=== PATIENT | female | born 1980 | race Caucasian/White ===

== ENCOUNTER 2018-05-14 22:25 | Inpatient (IN) | payer OTHER ==
[~2018-05-14] VITALS: Ht 160 cm; Wt 63.0 kg
[2018-05-14] MEDS ORDERED: morphine 4 MG/ML VIAL IV ONE (22:35)
[2018-05-14] MEDS ORDERED: morphine 2 MG INJ ONE (22:36)
[2018-05-14] MEDS: LACTATED RINGER'S 1,000 ML IV* SCH (23:01)
[2018-05-14] MEDS ORDERED: DIAZEPAM 5 MG/ML SYG IV ONE (23:12)
[2018-05-14] MEDS: morphine 4 MG/ML VIAL IV PRN (23:34)
[2018-05-14 23:48] VITALS: BP 122/66; PULSE 95; RESP 18
[2018-05-15] MEDS: LACTATED RINGER'S 1,000 ML IV* SCH ×3 (00:50→19:08)
[2018-05-15] MEDS: morphine 4 MG/ML VIAL IV PRN ×2 (01:38→04:44)
[2018-05-15] MEDS ORDERED: AL HYDROX/MG HYDROX/SIMETH 30 ML CUP PO PRN (03:00)
[2018-05-15] MEDS ORDERED: MAGNESIUM SULFATE 4 GM/100 ML 100 ML IV ONE (03:00)
[2018-05-15] MEDS ORDERED: ONDANSETRON 4 MG INJ IV PRN (03:00)
[2018-05-15] MEDS: MAGNESIUM SULFATE 20 GM/500 ML 500 ML IV SCH ×3 (03:48→23:58)
[2018-05-15] MEDS: BETAMET NA PHOS/AC(6 MG/ML) 2 ML INJ SYG IM SCH (05:23)
[2018-05-15] MEDS: HYDROmorphONE 0.5 MG/0.5 ML SYG IV PRN ×5 (08:00→21:20)
[2018-05-15] MEDS: PRENATAL VITAMIN PO SCH (12:03)
[2018-05-15] MEDS: FERROUS SULFATE (EC) 325 MG TAB PO SCH (12:03)
--- NOTE | 2018-05-15 12:34 | HP ---
Date/Time of Note Date/Time of Note DATE: 05/15/18 TIME: 10:55 OB - History Hx of Present Free Text/Dictation 38y.o [id number] triage with severe abdominal pain for few hours. pain level was 10/10 no position made pain alleviated, denies any nausea or vomiting or diarrhea or vaginal bleeding of febrile episodesor hematuria. normotensive , no tachycardia afebrile unable to evaluate patient due to severe pain except information from her OB that she is known to have fiboid which could be degenerated ,which could be the cause of pain. abdominal palpation used to detect uterine activities,because patient was hypersensitive on putting the toco belt no uterine activities was felt for longer than 20 min. Morphine sulfate 4mg given x2 didnt relieved pain ,additional valium 2mg made her relax and ease up the pain and then we are able to place toco which revealed uc's q2-3 min . CVL wasnt done before due to patient 's refusal but it was allowed showed 3.35 ,initial measurement 4.2 in 1st trimester patient was admitted for steroid tx for lung maturity and magnesium sulfate for tocolysis with neuroprotection. also consultation will be obtained. add; due to recurrent loss of she did received progesterone up to 12w of ,has been on BASA Chief Complaint: severe abdominal pain Estimated Due Date: Aug 07, 2018 : 6 Para: 1 Spontaneous : 4 Therapeutic : 0 Care: Good Care Ultrasounds: Normal mid trimester US Obstetrical Complications: None, Other (terine fibroid) Past Family/Social History * Past Medical, Surgical, Family and Obstetric Histories reviewed from chart. Blood Type: A+ Rubella: not immune RPR/VDRL: Negative GBS Status: Negative HBsAG: Negative OB Admission Exam Vital Signs Vital Signs Vital Signs Date Temp Pulse Resp B/P (MAP) Pulse Ox O2 O2 Flow FiO2 Time Delivery Rate 05/14/18 97.7 95 18 122/66 Room Air 23:48 (84) Physical Exam HEENT: WNL Heart: Rhythm Normal Lungs: Clear, Equal Abdomen: Abnormal (extremely sensitive) Extremities: Normal Reflexes: Normal Cervical Dilatation: other Effacement: Other (CVL 3.35) Station: Other Membranes: Intact Amniotic Fluid: Unevaluable Heart Rate: 150's (170) Accelerations: Accelerations Present Varibility: Minimum Contractions on Admission: None Last 72 hours Lab Results CBC & BMP 05/14/18 23:57 Liver Function Test 05/14/18 23:57 Alanine Aminotransferase (ALT/SGPT) 13 Albumin 3.2 L Alkaline Phosphatase 121 Aspartate Amino Transf (AST/SGOT) 17 Direct Bilirubin 0.00 Total Protein 6.3 OB Assessment/Plan Reason for admission: labor Other Assessment: A IUP 28w with severe abdominal pain mostlikely due to degenerating fibroid PTL Plan: Other ( pain management, tocolysis and BMZ) KRISTA ROMERO MD May 15, 2018 12:31
--- NOTE | 2018-05-15 12:40 | QN ---
Documentation Comment patient appear to be feeling better ,currently making face intermittently whenever uc's occur mg level just drawn. still having uc's even though its spaecd out increase fluid feed the patient wait for aliyah see pt KRISTA ROMERO MD May 15, 2018 12:40
[2018-05-15] MEDS: ASPIRIN 81 MG TAB PO SCH (13:25)
[2018-05-16] MEDS: HYDROmorphONE 0.5 MG/0.5 ML SYG IV PRN ×4 (01:12→19:03)
[2018-05-16] MEDS: LACTATED RINGER'S 1,000 ML IV* SCH ×2 (04:51→18:17)
[2018-05-16] MEDS ORDERED: HYDROmorphONE 1 MG/ML SYG IV PRN (06:00)
--- NOTE | 2018-05-16 06:39 | CONS ---
DATE OF ADMISSION: 05/15/2018 DATE OF CONSULTATION: 05/15/2018 RECOMMENDATIONS: This is perinatology note. HISTORY OF PRESENT ILLNESS: The patient is a 38-year-old G6, P1 currently at 28 weeks and 5 or 6 day s and presented with complaint of contractions. Her cervical length was 3.2 cm. She was placed on m agnesium sulfate and been given betamethasone. Currently, she feels much better and she states after placement of the Sher she actually can relax a nd could sleep. OBSTETRIC HISTORY: Significant for 2 spontaneous abortions followed with 1 , 2 stops and th en one. This is the second baby. VITAL SIGNS: Stable. PHYSICAL EXAMINATION: Deferred. heart tones reassuring. Currently, no contractions. IMPRESSION: Intrauterine at 28 weeks and 5 days with labor, mostly contrac tions, presented to hospital on magnesium sulfate, currently receiving betamethasone. She states that her status has improved. She has about 2.9 cm myoma. Per patient she received 48 hours of Indocin about last week since she w as experiencing pain in that region. However, she does state that at last visit with us, her pain wa s not constant but would go and come back which is more consistent with contractions. RECOMMENDATIONS: Continue with the magnesium sulfate until the last dose of betamethasone, then we c an, given the cervical length, it can be discontinued. Alternatively tomorrow morning we can repeat the cervical length. If it is stable, magnesium sulfate can be discontinued. However, if the cervix is less than 2.5 cm, then I do recommend to continue with the magnesium for 24 hours after the last dose of betamethasone. When magnesium is discontinued, monitor in-house for a few hours. If there i s no evidence of contractions, she can be discharged home. She does have a doctor at [place] and she has been in touch with him. She was advised against holding her urine for a long time and also she had some concerns about the my stefano. Myoma is 2.9 cm, but the 2.9 cm can cause some pain; however, that pain would be constant and w ould not come and go. Once magnesium sulfate is stopped and after a few hours if she has some pain, please do note that the pain can be secondary to the myoma. We would have to assess the origin. If she feels that the pain is contraction-related, then she can be discharged home on Procardia 20 mg every 6 hours if blood pr essure allows. However, if she is in pain, then obviously in-house management without discharge. In summary, check transvaginal cervical length and based on that, decide. If the cervical length is above 2.5 cm, continue IV magnesium sulfate and monitor for a few hours. If she is comfortable, she can be discharged home. Otherwise, start on Procardia 20 mg every 6 hours and monitor and if that wo rks, then she can be discharged home. Alternatively, if the transvaginal cervical length is less jose n 2.5 cm, then I do recommend continuing with the magnesium sulfate 24 hours after the second dose of betamethasone and then Procardia as stated above. Dictated By: PHILLIP VILLALBA MD ST/NTS Conf#: [id number] DID#: [id number] CC: TAMARA ROMERO MD;*EndCC*
[2018-05-16] MEDS: BETAMET NA PHOS/AC(6 MG/ML) 2 ML INJ SYG IM SCH (09:45)
[2018-05-16] MEDS ORDERED: DESFLURANE 15 MIN ONE (10:00)
[2018-05-16] MEDS: FERROUS SULFATE (EC) 325 MG TAB PO SCH (10:09)
[2018-05-16] MEDS: PRENATAL VITAMIN PO SCH (10:09)
[2018-05-16] MEDS: ASPIRIN 81 MG TAB PO SCH (10:09)
--- NOTE | 2018-05-16 10:15 | CONS ---
Consultation Date/Type/Reason Admit Date/Time May 15, 2018 at 03:00 Date of Consultation: May 16, 2018 Type of Consult Neonatology Reason for Consultation Patient is admitted for pain and labor. Date/Time of Note DATE: 05/16/18 TIME: 10:09 Hx of Present Illness Request for consult by Dr. Pressley and also by perinatology. Rigo Leon is admitted for pain and labor, at 28 weeks on 05/15. She was taken by ambulance to [facility]. She has delivery plan for [facility] where her doctor is. She is 38-year-old 6 para 1 TAB 4 had a previous child at 37 weeks who is now 3 years old and doing well. She denies other illnesses medication smoking drugs or alcohol. Her blood type is A+ RPR negative rest of labs are not available. She had an cervical ultrasound showing a length of 3.35 cm. Obstetrical ultraso und shows an estimated weight of 1196 g on 05/15. She does not want to know the sex of the baby, and I do not know it 8 She is admitted for pain also is some contractions, was started on magnesium sulfate and received first dose of betamethasone on 05/15 at 5:30 AM. She has no fever but possibly an MRI to rule out appendicitis is planned. I spoke extensively with Ms. Leon about the risk for neurodevelopmental problems in premature babies, which can be augmented by problems such as respiratory distress, as well as intracranial bleeding. Risk for eye problems retinopathy of prematurity, respiratory problems requiring support, apnea hyperbilirubinemia feeding difficulties requiring gavage feeding intravenous feeding and feeding intolerance such as necrotizing enterocolitis, intracranial hemorrhage, glucose and metabolic disturbances, the need for possibly needed procedures such as invasive lines. I encouraged her to stay which her doctors will try even if she would require surgery for an appendix. I answered all her questions to her satisfaction. I spent about 30 minutes with Ms. Leon, more than 50% of this spent on with counseling and coordination of care. Thank you very much for allowing me to assist in the care of this family. Obviously neonatology involvement if the baby is born prematurely. Past Medical History Medications Current Medications Lactated Ringer's 1,000 ml @ 500 mls/hr Q2H IV* Last administered on 05/16/18at 04:51; Admin Dose 500 MLS/HR; Start 05/14/18 at 23:00 Morphine Sulfate (morphine) 4 mg Q2H PRN IV SEVERE PAIN LEVEL 7-10 Last administered on 05/15/18at 04:44; Admin Dose 4 MG; Start 05/14/18 at 23:30 Prenat Multivit/ [place]/Iron/Folic Ac () 1 tab DAILY PO Last administered on 05/15/18at 12:03; Admin Dose 1 TAB; Start 05/15/18 at 09:00 Ferrous Sulfate (Ferrous Sulfate (Ec)) 325 mg DAILY PO Last administered on 05/15/18at 12:03; Admin Dose 325 MG; Start 05/15/18 at 09:00 Acetaminophen (Tylenol Tab) 650 mg Q4H PRN PO .PAIN OR TEMP; Start 05/15/18 at 03:00 Al Hydrox/Mg Hydrox/Simethicone (Mag-Al Plus) 30 ml Q6H PRN PO .GI UPSET; Start 05/15/18 at 03:00 Ondansetron HCl (Zofran Inj) 4 mg Q6H PRN IV NAUSEA/VOMITING; Start 05/15/18 at 03:00 Aspirin (Aspirin) 81 mg DAILY PO Last administered on 05/15/18at 13:25; Admin Dose 81 MG; Start 05/15/18 at 12:30 Hydromorphone HCl (Dilaudid) 1 mg Q3H PRN IV SEVERE PAIN LEVEL 7-10 Last administered on 05/16/18at 08:11; Admin Dose 1 MG; Start 05/16/18 at 08:01 Allergies: Coded Allergies: No Known Allergy (Unverified , 05/14/18) Social History Smoking Status: Never smoker Exam/Review of Systems Exam Vitals Vital Signs Date Temp Pulse Resp B/P (MAP) Pulse Ox O2 O2 Flow FiO2 Time Delivery Rate 05/14/18 97.7 95 18 122/66 Room Air 23:48 (84) Intake and Output 05/15/18 05/15/18 05/16/18 1515:00 23:00 07:00 IntakeIntake Total 862.5 ml 1150 ml 1300 ml OutputOutput Total 1700 ml 950 ml 1000 ml BalanceBalance -837.5 ml 200 ml 300 ml Results Result Diagram: 05/14/18 7918 05/14/18 1487 Results 24hrs Laboratory Tests Test 05/15/18 11:56 05/15/18 17:53 05/16/18 00:22 05/16/18 05:29 Magnesium Level 5.8 *H 6.2 *H 6.1 *H 6.3 *H Medications Medication Current Medications Lactated Ringer's 1,000 ml @ 500 mls/hr Q2H IV* Last administered on 05/16/18 04:51; Admin Dose 500 MLS/HR; Start 05/14/18 at 23:00 Morphine Sulfate (morphine) 4 mg Q2H PRN IV SEVERE PAIN LEVEL 7-10 Last administered on 05/15/18 04:44; Admin Dose 4 MG; Start 05/14/18 at 23:30 Prenat Multivit/ [place]/Iron/Folic Ac () 1 tab DAILY PO Last administ ered on 05/15/18 12:03; Admin Dose 1 TAB; Start 05/15/18 at 09:00 Ferrous Sulfate (Ferrous Sulfate (Ec)) 325 mg DAILY PO Last administered on 05/15/18 12:03; Admin Dose 325 MG; Start 05/15/18 at 09:00 Acetaminophen (Tylenol Tab) 650 mg Q4H PRN PO .PAIN OR TEMP; Start 05/15/18 at 03:00 Al Hydrox/Mg Hydrox/Simethicone (Mag-Al Plus) 30 ml Q6H PRN PO .GI UPSET; Start 05/15/18 at 03:00 Ondansetron HCl (Zofran Inj) 4 mg Q6H PRN IV NAUSEA/VOMITING; Start 05/15/18 at 03:00 Aspirin (Aspirin) 81 mg DAILY PO Last administered on 05/15/18 13:25; Admin Dose 81 MG; Start 05/15/18 at 12:30 Hydromorphone HCl (Dilaudid) 1 mg Q3H PRN IV SEVERE PAIN LEVEL 7-10 Last administered on 05/16/18 08:11; Admin Dose 1 MG; Start 05/16/18 at 08:01 YULIYA ALVAREZ May 16, 2018 10:15
--- NOTE | 2018-05-16 12:22 | QN ---
Documentation Comment 28+wks GA with Abdominal pain and loss of Appetite WBC 12k VS stable Abd RLQ tenderness +Rebound +Guarding NS T Reassuring TOco NO CTX s/p Mg and steroids --->MRI to R/o Appendicitis --->Close Observation --->pain management ALAN MEDRANO M.D. May 16, 2018 12:22
[2018-05-16] MEDS: ACETAMINOPHEN 325 MG TAB PO PRN ×2 (12:39→16:10)
--- NOTE | 2018-05-16 18:09 | QN ---
Documentation Comment MRI performed,Appendicitis is suggested Dr.Samuel Das,maintenance inspector General surgeon is informed. He will see the patient. -->Keep the patient NPO --->patient will be signed out to next laborist at 7 pm ALAN MEDRANO M.D. May 16, 2018 18:09
--- NOTE | 2018-05-16 19:47 | PREAC ---
Date/Time of Note Date/Time of Note DATE: 05/16/18 TIME: 19:45 Anesthesia Eval and Record Evaluation Time Pre-Procedure Interview DATE: 05/16/18 TIME: 19:45 Age 38 Sex female NPO: 8 hrs Preoperative diagnosis appendicitis Planned procedure laproscopic appendectomy Past Medical History Past Medical History: None : Gestational age: (28 week patient with 6 miscariage and one ) Surgery & Anesthesia Issues No known issue Meds Anticoagulation: No Beta Adela within 24 hr: No Reason Beta Adela not given: Pt. not on B-Adela Current Medications Lactated Ringer's 1,000 ml @ 500 mls/hr Q2H IV* Last administered on 05/16/18 18:17; Admin Dose 500 MLS/HR; Start 05/14/18 at 23:00 Morphine Sulfate (morphine) 4 mg Q2H PRN IV SEVERE PAIN LEVEL 7-10 Last administered on 05/15/18at 04:44; Admin Dose 4 MG; Start 05/14/18 at 23:30 Prenat Multivit/ [place]/Iron/Folic Ac () 1 tab DAILY PO Last administered on 05/16/18 10:09; Admin Dose 1 TAB; Start 05/15/18 at 09:00 Ferrous Sulfate (Ferrous Sulfate (Ec)) 325 mg DAILY PO Last administered on 05/16/18 10:09; Admin Dose 325 MG; Start 05/15/18 at 09:00 Acetaminophen (Tylenol Tab) 650 mg Q4H PRN PO .PAIN OR TEMP Last administered on 05/16/18 16:10; Admin Dose 650 MG; Start 05/15/18 at 03:00 Al Hydrox/Mg Hydrox/Simethicone (Mag-Al Plus) 30 ml Q6H PRN PO .GI UPSET; Start 05/15/18 at 03:00 Ondansetron HCl (Zofran Inj) 4 mg Q6H PRN IV NAUSEA/VOMITING; Start 05/15/18 at 03:00 Aspirin (Aspirin) 81 mg DAILY PO Last administered on 05/16/18at 10:09; Admin Dose 81 MG; Start 05/15/18 at 12:30 Hydromorphone HCl (Dilaudid) 1 mg Q3H PRN IV SEVERE PAIN LEVEL 7-10 Last administered on 05/16/18at 19:03; Admin Dose 1 MG; Start 05/16/18 at 08:01 Cefazolin Sodium/ Dextrose 50 ml @ 100 mls/hr Q8 IVPB ; Start 05/16/18 at 22:00; Status UNV Metronidazole 100 ml @ 100 mls/hr ONCE ONCE IVPB ; Start 05/16/18 at 19:30; Stop 05/16/18 at 20:29; Status UNV Meds reviewed: Yes Allergies Coded Allergies: No Known Allergy (Unverified , 05/14/18) Allergies Reviewed: Yes Labs/Studies Labs Reviewed: Reviewed by anesthesiologist Result Diagram: 05/14/18235605/14/182356 test: N/A Pre-procedure Exam Last vitals Vital Signs Date Temp Pulse Resp B/P (MAP) Pulse Ox O2 O2 Flow FiO2 Time Delivery Rate 05/14/18 97.7 95 18 122/66 Room Air 23:48 (84) Airway: Adequate mouth opening, Adequate thyromental dist Mallampati: Mallampati IV Teeth: Normal Lung: Normal Heart: Normal ASA Physical Status ASA physical status: 2 Emergency: None Pre-operative Attestations Prior to commencing anesthesia and surgery, the patient was re-evaluated, there was verification of: *The patient's identity *The results of appropriate recent lab work and preoperative vital signs *The above evaluation not changing prior to induction *Anesthetic plan, risk benefits, alternative and complications discussed with patient/family; questions answered; patient/family understands, accepts and wishes to proceed. SRIDHAR GALLO DO May 16, 2018 19:47
--- NOTE | 2018-05-16 19:48 | CONS ---
Assessment/Plan Assessment/Plan Assessment/Plan (Daily) 1. Acute appendicitis: Had discussion with patient regarding risks of surgical intervention including labor. At this time patient is agreeable to proceed with appendectomy -OR -Antibiotics -N.p.o. -Pain management 2. Gravid 28 weeks: -Per laborist/perinatology 3.Leukocytosis: Likely 2/2 #1 -As above 4. Hypochromic anemia -Monitor and transfuse as needed 5. Hypokalemia -Replete and monitor 6. Abdominal pain: Likely 2/2 #1 uterine fibroid -As above -Pain management Thank you. Patient seen and examined in collaboration with Dr. Sundar Das. Patient seen and examined. Patient with acute appendicitis, abdominal pain, leukocytosis, 28wks gravid uterus. She also has anemia, hypokalemia, and taking ASA. 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 Patient wants to have surgery. is in agreement. -iv abx (d/w Dr. Pressley and she cleared Zosyn) -npo -ivf -OR Thank you, Sundar Das MD Consultation Date/Type/Reason Admit Date/Time May 15, 2018 at 03:00 Date of Consultation: May 16, 2018 Type of Consult Surgical Reason for Consultation Appendicitis Requesting Provider: SUNDAR DAS MD Date/Time of Note DATE: 05/16/18 TIME: 19:32 Hx of Present Illness Rigo Leon is a 38-year-old woman who is 6 para 1, spontaneous ab ortions for with past medical history of uterine fibroid who presented with 10 out of 10 abdominal pain along with contractions. She was started on magnesium sulfate. She denied fevers, chills, nausea, vomiting, diarrhea, change in bowel or bladder habits, vaginal bleeding or unusual discharge. Initially her abdominal pain was attributed to uterine fibroid however an MRI was performed and she was noted to have an enlarged appendix with circumferential wall thickening measuring 2.1 cm. Laboratory findings significant for elevated WBC of 12.4. General surgery was asked to evaluate. 12 point review of systems was performed and is negative except for as stated in HPI. Past Medical History As above Medications Current Medications Lactated Ringer's 1,000 ml @ 500 mls/hr Q2H IV* Last administered on 3/23/19at 18:17; Admin Dose 500 MLS/HR; Start 05/14/18 at 23:00 Morphine Sulfate (morphine) 4 mg Q2H PRN IV SEVERE PAIN LEVEL 7-10 Last administered on 05/15/18 04:44; Admin Dose 4 MG; Start 05/14/18 at 23:30 Prenat Multivit/ [place]/Iron/Folic Ac () 1 tab DAILY PO Last administered on 05/16/18 10:09; Admin Dose 1 TAB; Start 05/15/18 at 09:00 Ferrous Sulfate (Ferrous Sulfate (Ec)) 325 mg DAILY PO Last administered on 05/16/18 10:09; Admin Dose 325 MG; Start 05/15/18 at 09:00 Acetaminophen (Tylenol Tab) 650 mg Q4H PRN PO .PAIN OR TEMP Last administered on 05/16/18 16:10; Admin Dose 650 MG; Start 05/15/18 at 03:00 Al Hydrox/Mg Hydrox/Simethicone (Mag-Al Plus) 30 ml Q6H PRN PO .GI UPSET; Start 05/15/18 at 03:00 Ondansetron HCl (Zofran Inj) 4 mg Q6H PRN IV NAUSEA/VOMITING; Start 05/15/18 at 03:00 Aspirin (Aspirin) 81 mg DAILY PO Last administered on 05/16/18 10:09; Admin Dose 81 MG; Start 05/15/18 at 12:30 Hydromorphone HCl (Dilaudid) 1 mg Q3H PRN IV SEVERE PAIN LEVEL 7-10 Last administered on 05/16/18 19:03; Admin Dose 1 MG; Start 05/16/18 at 08:01 Cefazolin Sodium/ Dextrose 50 ml @ 100 mls/hr Q8 IVPB ; Start 05/16/18 at 22:00; Status UNV Metronidazole 100 ml @ 100 mls/hr ONCE ONCE IVPB ; Start 05/16/18 at 19:30; Stop 05/16/18 at 20:29; Status UNV Allergies: Coded Allergies: No Known Allergy (Unverified , 05/14/18) Past Surgical History Past Surgical Hx: no surgical history Social History Smoking Status: Never smoker Exam/Review of Systems Exam Vitals Vital Signs Date Temp Pulse Resp B/P (MAP) Pulse Ox O2 O2 Flow FiO2 Time Delivery Rate 05/14/18 97.7 95 18 122/66 Room Air 23:48 (84) Intake and Output 05/15/18 05/15/18 05/16/18 1515:00 23:00 07:00 IntakeIntake Total 862.5 ml 1150 ml 1300 ml OutputOutput Total 1700 ml 950 ml 1000 ml BalanceBalance -837.5 ml 200 ml 300 ml Constitutional: alert, oriented, well developed Psych: anxiety (Minimal) Head: normocephalic, atraumatic Eyes: nl conjunctiva, EOMI, nl lids, nl sclera ENMT: nl external ears & nose, nl lips & teeth, nl nasal mucosa & septum, mucosa pink and moist Neck: supple, non-tender; No jvd Respiratory: normal air movement; No congested cough Cardiovascular: regular rate and rhythm, nl pulses; No edema Gastrointestinal: soft, tender (Right lower quadrant), other (Gravid); No distended, No rebound or guarding Musculoskeletal: nl extremities to inspection, nl gait and stance Extremities: normal pulses Neurological: nl mental status, nl speech, nl strength Skin: No rash or lesions Lymph: nl lymph nodes Results Result Diagram: 05/14/18235605/14/182356 Results 24hrs Laboratory Tests Test 05/16/18 00:22 05/16/18 05:29 Magnesium Level 6.1 *H 6.3 *H Medications Medication Current Medications Lactated Ringer's 1,000 ml @ 500 mls/hr Q2H IV* Last administered on 05/16/18at 18:17; Admin Dose 500 MLS/HR; Start 05/14/18 at 23:00 Morphine Sulfate (morphine) 4 mg Q2H PRN IV SEVERE PAIN LEVEL 7-10 Last administered on 05/15/18at 04:44; Admin Dose 4 MG; Start 05/14/18 at 23:30 Prenat Multivit/ [place]/Iron/Folic Ac () 1 tab DAILY PO Last administered on 05/16/18at 10:09; Admin Dose 1 TAB; Start 05/15/18 at 09:00 Ferrous Sulfate (Ferrous Sulfate (Ec)) 325 mg DAILY PO Last administered on 05/16/18at 10:09; Admin Dose 325 MG; Start 05/15/18 at 09:00 Acetaminophen (Tylenol Tab) 650 mg Q4H PRN PO .PAIN OR TEMP Last administered on 05/16/18at 16:10; Admin Dose 650 MG; Start 05/15/18 at 03:00 Al Hydrox/Mg Hydrox/Simethicone (Mag-Al Plus) 30 ml Q6H PRN PO .GI UPSET; Start 05/15/18 at 03:00 Ondansetron HCl (Zofran Inj) 4 mg Q6H PRN IV NAUSEA/VOMITING; Start 05/15/18 at 03:00 Aspirin (Aspirin) 81 mg DAILY PO Last administered on 05/16/18at 10:09; Admin Dose 81 MG; Start 05/15/18 at 12:30 Hydromorphone HCl (Dilaudid) 1 mg Q3H PRN IV SEVERE PAIN LEVEL 7-10 Last ad ministered on 05/16/18at 19:03; Admin Dose 1 MG; Start 05/16/18 at 08:01 Cefazolin Sodium/ Dextrose 50 ml @ 100 mls/hr Q8 IVPB ; Start 05/16/18 at 22:00; Status UNV Metronidazole 100 ml @ 100 mls/hr ONCE ONCE IVPB ; Start 05/16/18 at 19:30; Stop 05/16/18 at 20:29; Status UNV JENA MON NP May 16, 2018 19:43 SUNDAR DAS MD May 16, 2018 19:56
[2018-05-16] MEDS ORDERED: ROCURONIUM 50 MG INJ ONE (19:50)
[2018-05-16] MEDS ORDERED: SUCCINYLCHOLINE CHLORIDE 100 MG/5 ML SYG IV ONE (19:50)
[2018-05-16] MEDS ORDERED: PROPOFOL 20 ML ONE (19:50)
[2018-05-16] MEDS ORDERED: MIDAZOLAM 1 MG/ML 2 ML INJ ONE (19:51)
[2018-05-16] MEDS ORDERED: LIDOCAINE 1% (MDV) 20 ML INJ ONE (19:51)
[2018-05-16] MEDS ORDERED: BUPIVACAINE 0.5%/EPI (SDV) 30 ML INJ ONE (19:54)
[2018-05-16] MEDS ORDERED: LIDOCAINE 1% (MPF) 30 ML INJ ONE (19:54)
[2018-05-16] MEDS ORDERED: FAMOTIDINE 20 MG INJ ONE (19:57)
--- NOTE | 2018-05-16 19:58 | OPR ---
Date/Time of Note Date/Time of Note DATE: 05/16/18 TIME: 19:56 Operative Report Free Text/Dictation Preoperative Diagnosis 1. Acute appendicitis on MRI 2. Gravid uterus, 28 weeks 3. 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 Acute perforated appendicitis with peritonitis and abscesses 2. Gravid uterus, 28 weeks 3. 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 Difficult operation 5. Ventral hernia 6. Significant stents adhesions around the appendix and the omentum Operation Performed 1. Laparoscopic appendectomy and washout 2. Laparoscopic partial cecectomy 3. Laparoscopic partial omentectomy 4. Ventral hernia repair, primary. 5. Difficult operation, modifier 22 6. Local anesthetic injection, [id number] 7. Laparoscopic guided bilateral transversus abdominis plane block Surgeon: SUNDAR SMITH MD Timber Mill Worker: Tisha Christianson NP Anesthesia: general (Plus local plus regional) Anesthesiologist: Diego Mcdonald MD Estimated Blood Loss: 100 ml's Specimens: Appendix Tubes/Drains 19 F Conor Complications: None Pt Condition Post Procedure: stable Disposition: PACU Indications: Per consult note. Risks include but are not limited to bleeding, infection, abscess, seroma, leak, damage to intestines or any intra-abdominal/intrapelvic structures, hernia formation, chronic pain, need for re-operations or further surgeries, OH, stroke, PE, DVT, pneumonia, organ failures, or even . Patient also has risk of labor or damage to the uterus or eventual issues with fetus. She understands her high risks involved. also understand. The OB and high pressure kettle operator have also discussed possibilities. Patient wants to proceed with surgery. Procedure Note: Patient was brought into the operating room, placed supine on the operating t able, SCDs were placed, left arm was tucked, all pressure points were well- padded, preoperative antibiotics administered, and after induction of anesthesia, patient was prepped and draped in usual sterile fashion, and timeout was performed. Due to the large gravid uterus, local anesthetic injection was done and left subcostal incision was made and a Veress needle safely placed. Negative strep test was performed. Abdomen was insufflated to 15 mmHg CO2. Incision was made right upper quadrant and using Optiview port and a 5 mm 0 degree scope abdomen was entered. The gravid uterus was identified. There was pus throughout the abdomen. There was omental adhesions to the abdominal wall. Under direct visualization 12 and a port was placed and supraumbilical through the ventral hernia followed by another 5 mm port in the lower midline. All incision sites were injected with quarter percent Marcaine with 1% lidocaine with epi. Bilateral transversus abdominis plane block was performed under laparoscopic visualization to aid with pain control intra-and postoperatively. Immediately pus was suctioned out as much as possible throughout the abdomen. Very careful dissection and manipulation around the gravid uterus was performed. The omentum and bowel were very stuck to the colon and an inflamed perforated appendix. It was very difficult to separate the structures and a partial omentectomy had to be performed to control bleeding and to be able to separate the tissues. I was able to finally identify the terminal ileum there was collapse going into the cecum and a very inflamed swollen appendix and mesoappendix. Cecum was also thickened and abnormal and inflamed. Patient was placed in Trendelenburg and right side up. The mesoappendix was transected with multiple white load [place] staplers. Since the base of the appendix was thickened as well as the cecum, decision was made to transect part of the cecum to be able to have healthier tissue. However after using the stapler for transection part of the staple line opened up and decision was made to repair this with suture repair. 2-0 Vicryl suture was used to approximate the edges in a running fashion. 2-0 silk was used further to reinforce the repair site in Lembert fashion. Hemostasis was fully obtained. The appendix was placed in an Endo Catch bag and removed through the ventral hernia. The ventral hernia was repaired with #1 Vicryl sutures in a [id number] manner x2. 19 [place] Conor drain was placed through the lower incision into the pelvis and along the uterus to do the drain remaining fluid on infection. Ports and CO2 were removed under direct visualization, wounds were fully irrigated, and skin was closed in subcuticular fashion using 4-0 Monocryl. Dermabond was applied. All counts were correct and the end of the operation 2. Patient was extubated and transferred to recovery room in stable condition. SUNDAR SMITH MD May 16, 2018 19:58
[2018-05-16] MEDS ORDERED: PROCHLORPERAZINE 10 MG INJ IV PRN (20:00)
[2018-05-16] MEDS ORDERED: ONDANSETRON 4 MG INJ IV PRN (20:00)
[2018-05-16] MEDS ORDERED: HYDROmorphONE 1 MG/5 ML IV SYRINGE IV PRN ×3 (20:00)
[2018-05-16] MEDS ORDERED: LABETALOL HCL 20MG INJ IV PRN (20:00)
[2018-05-16] MEDS ORDERED: hydrALAzine 20 MG INJ IV PRN (20:00)
[2018-05-16] MEDS ORDERED: metroNIDAZOLE 500 MG/NS (PMX) 100 ML IVPB ONE (20:00)
[2018-05-16] MEDS ORDERED: PIPER-TAZO 3.375 GM IV (PMX) 100 ML ONE (20:03)
[2018-05-16] MEDS ORDERED: ONDANSETRON 4 MG INJ ONE (20:51)
[2018-05-16] MEDS ORDERED: DEXAMETHASONE 4 MG/ML 5 ML INJ ONE (20:51)
[2018-05-16] MEDS ORDERED: FENTAnyl 50 MCG/ML VIAL ONE (21:47)
[2018-05-16] MEDS ORDERED: CEFAZOLIN 2 GM/50 ML (PMX) 50 ML IVPB SCH (22:00)
[2018-05-16] MEDS ORDERED: ROPIVACAINE 0.2% 20 ML VIAL ONE (22:23)
[2018-05-16 22:42] VITALS: BP_SYST 119; BP_SYST 122; BP_DIAS 0; BP_DIAS 79; PULSE 103; RESP 15; RESP 22
[2018-05-16] MEDS ORDERED: SUGAMMADEX SODIUM 200 MG/2 ML VIAL IV ONE (23:36)
[2018-05-16 23:48] VITALS: BP 133/78; PULSE 104; RESP 21
[2018-05-16 23:53] VITALS: BP 127/71; PULSE 100; RESP 18
[2018-05-16 23:58] VITALS: BP 129/75; PULSE 98; RESP 18
[2018-05-17] VITALS (18 sets, daily range): BP systolic 118–137; BP diastolic 6–82; PULSE 84–102; RESP 11–23
[2018-05-17] MEDS: HYDROmorphONE 0.5 MG/0.5 ML SYG IV PRN ×6 (00:52→21:38)
[2018-05-17] MEDS ORDERED: metroNIDAZOLE 500 MG/NS (PMX) 100 ML IVPB ONE (02:00)
[2018-05-17] MEDS: LACTATED RINGER'S 1,000 ML IV* SCH ×6 (03:00→03:18)
[2018-05-17] MEDS: LACTATED RINGER'S 1,000 ML IV SCH ×2 (03:46→13:01)
[2018-05-17] MEDS: PIPER-TAZO 3.375 GM IV (PMX) 100 ML IVPB SCH ×3 (06:23→23:29)
[2018-05-17] MEDS: PRENATAL VITAMIN PO SCH (11:34)
[2018-05-17] MEDS: FERROUS SULFATE (EC) 325 MG TAB PO SCH (11:34)
--- NOTE | 2018-05-17 13:09 | PN ---
Date/Time of Note Date/Time of Note DATE: 05/17/18 TIME: 12:38 Assessment/Plan Lines/Catheters IV Catheter Type (from [facility]): Peripheral IV Sher in Place (from [facility]): Yes Assessment/Plan Chief Complaint/Hosp Course 1. Acute perforated appendicitis with peritonitis and abscesses; Ventral hernia: status post laparoscopic appendectomy and washout, partial sacrectomy, partial omentectomy and ventral hernia repair 05/16/18 -IS -ambulate -ice pack to abdominal wall -advance diet as tolerated -drain care -ID consult: already obtained 2. Gravid 28 weeks: -Per laborist/perinatology 3.Leukocytosis: Likely 2/2 #1 -As above -Monitor 4. Hypochromic anemia -Monitor and transfuse as needed 5. Hypokalemia -Replete and monitor 6. Abdominal pain: Likely 2/2 #1 uterine fibroid -As above -Pain management Thank you. Patient seen and examined in collaboration with Dr. Juan A Das. Subjective 24 Hr Interval Summary sp appendectomy last night. Some abdominal discomfort but feels well. Able to ambulate. No fevers, chills, sob, congested cough, cp, palpitations, strong, dizziness, n/v/d/dysuria. Exam/Review of Systems Vital Signs Vitals Vital Signs Date Temp Pulse Resp B/P (MAP) Pulse Ox O2 O2 Flow FiO2 Time Delivery Rate 05/17/18 88 14 118/75 98 Mask 01:08 (89) 05/17/18 99.4 00:52 Intake and Output 05/16/18 05/16/18 05/17/18 1515:00 23:00 07:00 IntakeIntake Total 800 ml 2100 ml 1100 ml OutputOutput Total 1200 ml 100 ml 450 ml BalanceBalance -400 ml 2000 ml 650 ml Exam Free Text/Dictation Constitutional: alert, oriented, well developed Psych: anxiety (Minimal) Head: normocephalic, atraumatic Eyes: nl conjunctiva, EOMI, nl lids, nl sclera ENMT: nl external ears & nose, nl lips & teeth, nl nasal mucosa & septum, mucosa pink and moist Neck: supple, non-tender; No jvd Respiratory: normal air movement; No congested cough Cardiovascular: regular rate and rhythm, nl pulses; No edema Gastrointestinal: soft, tender (Right lower quadrant, aliyah-incisional), other (Gravid; jared drain serosang); No distended, No rebound or guarding Musculoskeletal: nl extremities to inspection, nl gait and stance Extremities: normal pulses Neurological: nl mental status, nl speech, nl strength Skin: No rash or lesions Lymph: nl lymph nodes Results Result Diagram: 05/17/18 0548 05/17/18 0548 JENA MON NP May 17, 2018 12:48
--- NOTE | 2018-05-17 14:47 | CONS ---
Assessment/Plan Assessment/Plan Assessment/Plan (Daily) 38 yo woman no major PMH presents at 28 weeks with perforated appendicitis, s/p surgery. #Perforated appendicitis - Analgesia: Continue IV dilaudid per surgery; when patient is reliably taking PO can transition to PO norco or dilaudid. - Hydration: Continue current fluids at 125, can stop when patient reliably taking PO. - Abx: ID following. Agree with zosyn. - Encourage ambulation, advance diet as tolerated. - Anticipate postoperative ileus, may need to advance bowel regimen over next few days. #Hypoxia - Likely due to postoperative atelectasis. - Continue incentive spirometry, pain control, ambulation. #DVT ppx - This patient is at high risk of DVT due to recent abdominal surgery and - Continue ambulation at least twice daily. As long as she is mobile no need to start anticoag. - Okay to continue aspirin per OB which may reduce risk of spontaneous . Thank you for the consult. We will continue to follow. Consultation Date/Type/Reason Admit Date/Time May 15, 2018 at 03:00 Date of Consultation: May 17, 2018 Type of Consult Internal Medicine Reason for Consultation Postoperative management Requesting Provider: TISHA MON NP Date/Time of Note DATE: 05/17/18 TIME: 14:28 Hx of Present Illness Ms. Leon is a pleasant 38 yo woman who presented to L&D with severe abdominal pain at 28 weeks . Initially she was started on tocolysis, IV mag for suspected labor. However severe pain persisted, MRI abdomen showed appendicitis. Taken to OR 05/[address] Das; had complicated perforated appendicitis requiring partial cecetomy. Tisha Martinez requested internal medicine consult due to her complicated course for medical management. Currently on exam; the patient is doing well postoperatively. Has mild hypoxia on nasal cannula. She does complain of mild abdominal pain with deep inspiration. Tolerating clear liquids without nausea or vomiting. Ambulating with assistance. BENJA drained 82 cc over past 8 hours. Nurse did report unusual white discharge in BENJA drain but none was present on my exam. Patient denies recent fevers, chills, weight loss, night sweats, headache, vision changes, chest pain/pressure/palpitations, nausea, vomiting, diarrhea. Past Medical History Medical History: no pertinent history Medications Current Medications Lactated Ringer's 1,000 ml @ 500 mls/hr Q2H IV* Last administered on 05/16/18 18:17; Admin Dose 500 MLS/HR; Start 05/14/18 at 23:00 Morphine Sulfate (morphine) 4 mg Q2H PRN IV SEVERE PAIN LEVEL 7-10 Last administered on 05/15/18 04:44; Admin Dose 4 MG; Start 05/14/18 at 23:30 Prenat Multivit/ [place]/Iron/Folic Ac () 1 tab DAILY PO Last administered on 05/17/18 11:34; Admin Dose 1 TAB; Start 05/15/18 at 09:00 Ferrous Sulfate (Ferrous Sulfate (Ec)) 325 mg DAILY PO Last administered on 05/17/18 11:34; Admin Dose 325 MG; Start 05/15/18 at 09:00 Acetaminophen (Tylenol Tab) 650 mg Q4H PRN PO .PAIN OR TEMP Last administered on 05/16/18 16:10; Admin Dose 650 MG; Start 05/15/18 at 03:00 Al Hydrox/Mg Hydrox/Simethicone (Mag-Al Plus) 30 ml Q6H PRN PO .GI UPSET; Start 05/15/18 at 03:00 Ondansetron HCl (Zofran Inj) 4 mg Q6H PRN IV NAUSEA/VOMITING; Start 05/15/18 at 03:00 Aspirin (Aspirin) 81 mg DAILY PO Last administered on 05/16/18 10:09; Admin Dose 81 MG; Start 05/15/18 at 12:30 Hydromorphone HCl (Dilaudid) 1 mg Q3H PRN IV SEVERE PAIN LEVEL 7-10 Last administered on 05/17/18 11:35; Admin Dose 1 MG; Start 05/16/18 at 08:01 Piperacillin Sod/ Tazobactam Sod 100 ml @ 200 mls/hr Q8 IVPB Last administered on 05/17/18 06:23; Admin Dose 200 MLS/HR; Start 05/17/18 at 06:00 Dextrose/Lactated Ringer's 1,000 ml @ 125 mls/hr Q8H IV ; Start 05/17/18 at 03:30 Lactated Ringer's 1,000 ml @ 125 mls/hr Q8H IV Last administered on 05/17/18 13:01; Admin Dose 125 MLS/HR; Start 05/17/18 at 03:30 Allergies: Coded Allergies: No Known Allergy (Unverified , 05/14/18) Past Surgical History 4 prior miscarriages; 2 required D+C Family History Significant Family History: no pertinent family hx Social History Alcohol Use: none Smoking Status: Never smoker Drug Use: none Exam/Review of Systems Exam Vitals Vital Signs Date Temp Pulse Resp B/P (MAP) Pulse Ox O2 O2 Flow FiO2 Time Delivery Rate 05/17/18 88 14 118/75 98 Mask 01:08 (89) 05/17/18 99.4 00:52 Intake and Output 05/16/18 05/16/18 05/17/18 1515:00 23:00 07:00 IntakeIntake Total 800 ml 2100 ml 1100 ml OutputOutput Total 1200 ml 100 ml 450 ml BalanceBalance -400 ml 2000 ml 650 ml Exam Gen: Thin, well developed woman lying in bed in no acute distress. Eyes: PERRL, no icterus HEENT: Moist mucous membranes, clear oropharynx Neck: Supple, no lymphadenopathy, no JVD Card: Regular rate and rhythm, no murmurs Pulm: Mild bibasilar crackles. Otherwise clear to auscultation. Abd: Gravid and distended. Lap incisions appear clean except suprapubic one which has a dressing over it. Nontender to mild palpation, soft. BENJA drain with serosanguinous nonpurulent output. Ext: Trace LE nonpitting edema. Good peripheral pulses. Skin: warm, dry, well perfused. Results Result Diagram: 05/17/18 0548 05/17/18 0548 Results 24hrs Laboratory Tests Test 05/17/18 05:48 05/17/18 06:21 White Blood Count 20.8 #H Red Blood Count 2.80 #L Hemoglobin 8.1 L Hematocrit 25.2 #L Mean Corpuscular Volume 90.0 Mean Corpuscular Hemoglobin 28.9 L Mean Corpuscular Hemoglobin Concent 32.1 Red Cell Distribution Width 13.8 Platelet Count 331 Mean Platelet Volume 9.1 Immature Granulocytes % 3.100 H Neutrophils % 91.2 H Lymphocytes % 2.7 L Monocytes % 2.8 Eosinophils % 0.0 Basophils % 0.2 Nucleated Red Blood Cells % 0.0 Immature Granulocytes # 0.650 H Neutrophils # 18.9 H Lymphocytes # 0.6 L Monocytes # 0.6 Eosinophils # 0.0 Basophils # 0.1 Nucleated Red Blood Cells # 0.0 Sodium Level 139 Potassium Level 4.5 Chloride Level 108 Carbon Dioxide Level 24 Anion Gap 7 Blood Urea Nitrogen 8 Creatinine 0.51 Est Glomerular Filtrat Rate mL/min > 60 Glucose Level 127 Calcium Level 8.2 L Lab Scanned Report REFERENCE LAB Medications Medication Current Medications Lactated Ringer's 1,000 ml @ 500 mls/hr Q2H IV* Last administered on 05/16/18 18:17; Admin Dose 500 MLS/HR; Start 05/14/18 at 23:00 Morphine Sulfate (morphine) 4 mg Q2H PRN IV SEVERE PAIN LEVEL 7-10 Last administered on 05/15/18 04:44; Admin Dose 4 MG; Start 05/14/18 at 23:30 Prenat Multivit/ [place]/Iron/Folic Ac () 1 tab DAILY PO Last administered on 05/17/18 11:34; Admin Dose 1 TAB; Start 05/15/18 at 09:00 Ferrous Sulfate (Ferrous Sulfate (Ec)) 325 mg DAILY PO Last administered on 05/17/18 11:34; Admin Dose 325 MG; Start 05/15/18 at 09:00 Acetaminophen (Tylenol Tab) 650 mg Q4H PRN PO .PAIN OR TEMP Last administered on 05/16/18 16:10; Admin Dose 650 MG; Start 05/15/18 at 03:00 Al Hydrox/Mg Hydrox/Simethicone (Mag-Al Plus) 30 ml Q6H PRN PO .GI UPSET; Start 05/15/18 at 03:00 Ondansetron HCl (Zofran Inj) 4 mg Q6H PRN IV NAUSEA/VOMITING; Start 05/15/18 at 03:00 Aspirin (Aspirin) 81 mg DAILY PO Last administered on 05/16/18 10:09; Admin Dose 81 MG; Start 05/15/18 at 12:30 Hydromorphone HCl (Dilaudid) 1 mg Q3H PRN IV SEVERE PAIN LEVEL 7-10 Last administered on 05/17/18 11:35; Admin Dose 1 MG; Start 05/16/18 at 08:01 Piperacillin Sod/ Tazobactam Sod 100 ml @ 200 mls/hr Q8 IVPB Last administered on 3/24/19at 06:23; Admin Dose 200 MLS/HR; Start 05/17/18 at 06:00 Dextrose/Lactated Ringer's 1,000 ml @ 125 mls/hr Q8H IV ; Start 05/17/18 at 03:30 Lactated Ringer's 1,000 ml @ 125 mls/hr Q8H IV Last administered on 05/17/18at 13:01; Admin Dose 125 MLS/HR; Start 05/17/18 at 03:30 GALI VIZCAINO MD May 17, 2018 14:39
--- NOTE | 2018-05-17 15:22 | QN ---
Documentation Comment 28+ wks s/p laparoscopic appendectomy,omentectomy feeling improved Vs table NsT reassuring [place] No TXS -->Continue observation --->Surgical management as per General surgery team ALAN MEDRANO M.D. May 17, 2018 15:22
--- NOTE | 2018-05-17 18:32 | CONS ---
DATE OF ADMISSION: 05/15/2018 DATE OF CONSULTATION: 05/17/2018 TYPE OF CONSULTATION: Infectious disease. REASON FOR CONSULTATION: Antibiotic management. HISTORY OF PRESENT ILLNESS: Rigo Leon is a pleasant 38-year-old ____ spontaneous abortions 4. T he patient presented to the hospital with severe abdominal pain. She denies nausea, vomiting or diar mark. On hospital course, the patient was found to have significant appendicitis. She was brought t o the operating room on 05/16/2018. She was found to have acute perforated appendicitis with periton itis and abscess, gravid uterus, 28 weeks' , history of multiple miscarriages currently on as pirin. She had a laparoscopic appendectomy and washout, laparoscopic partial cecectomy, laparoscopic partial omentectomy, ventral hernia repair primary, laparoscopic-guided bilateral transversus abdomi nis plane block. The patient is currently on Zosyn. Anticipate postoperative ileus. The patient pr esented with severe abdominal pain at 28 weeks' . PAST SURGICAL HISTORY: Status post 4 prior miscarriages, 2 required D and C. SOCIAL HISTORY: She does not smoke, drink or abuse drugs. ALLERGIES: NONE TO PENICILLIN, SULFA OR FOODS. MEDICATIONS: Per chart. REVIEW OF SYSTEMS: Noncontributory. PHYSICAL EXAMINATION: GENERAL: She is a thin, well-developed female lying in bed in no acute distress. VITAL SIGNS: T-max is 99.4. SKIN: Without generalized rash. HEENT: Within normal limits. NECK: Supple. LYMPH NODES: None palpable. CHEST: Decreased breath sounds at the bases. HEART: Without murmur or gallop. ABDOMEN: Soft. She is . Distended. Laparoscopic incisions are clear and clean. She has s uprapubic one which has a dressing over it. BENJA drain with serosanguineous nonpurulent output. EXTREMITIES: Without cyanosis, clubbing or edema. RECTAL AND GENITAL: Deferred. NEUROLOGIC: No focal neurological abnormalities. LABORATORY DATA: White count today is 20.8, H and H of 8.1 and 25.2, platelet count ____. Creatinin e was 0.51. IMPRESSION AND PLAN: The patient has a perforated appendix in the setting of 28-week . Leola lance was magnificently recently performed by Dr. Das since the baby survived and the damage was c ontained. We will continue her on Zosyn at this point, probably will require approximately a week of antibiotic therapy. I will dictate my findings to the hospitalist, IRRIGATION TAX ASSESSOR COLLECTOR, Dr. Sundar Das. Dictated By: ARMIN VINCENT MD, JD/NTS Conf#: [id number] DID#: [id number] CC: SUNDAR DAS MD; TAMARA ROMERO MD;*End*
[2018-05-17] MEDS ORDERED: ACETAMINOPHEN 1000MG/100ML IV 100 ML IVPB ONE (20:30)
[2018-05-17] MEDS: SOD CHLORIDE 0.9% 1,000 ML IV SCH (22:00)
[2018-05-18] MEDS: HYDROmorphONE 0.5 MG/0.5 ML SYG IV PRN ×4 (01:32→10:14)
[2018-05-18] MEDS ORDERED: NIFEdipine 10 MG CAP PO ONE (02:00)
[2018-05-18] MEDS: SOD CHLORIDE 0.9% 1,000 ML IV SCH ×3 (04:06→22:30)
[2018-05-18 05:49] VITALS: BP 129/79; PULSE 79; RESP 18
[2018-05-18] MEDS: PIPER-TAZO 3.375 GM IV (PMX) 100 ML IVPB SCH ×3 (06:03→22:32)
--- NOTE | 2018-05-18 07:16 | CONS ---
DATE OF ADMISSION: 05/15/2018 DATE OF CONSULTATION: I received a phone call from Dr. Banda, who is the laborist today. Apparently, he decided to do an MR I on this patient and subsequently appendicitis was diagnosed. ____ general surgeon has been consult ed and asked, in terms of the obstetrics, what recommendation they would have to pursue. In terms of the risk of the appendicitis, of course there is inflammation and there is a risk of rupture, defini tely appendectomy is recommended despite the gestational age, and secondly, the fact that ruptured ap pendicitis increases the risk of labor by itself. However, in terms of surgery, the recommen dations are ____ mode of surgery being laparoscopic or open surgery, I would defer that to the [facility] surgeons. If the laparoscopic surgery is decided, please monitor the intraabdominal pressure and keep that at t he minimum necessary to perform the surgery as the increase in the pressure would increase obviously the pressure on the uterus and the risks of labor. Limit the timing of anesthesia as much as possible. Before the delivery, a 20-minute heart tone strip should be done. In addition, cervical length after the surgery, immediately, heart tones should be assessed followed by a heart tone strip. In terms of the antibiotic necessary, I would defer to general surgeon on that, if there is a need fo r antibiotics after the surgery. Lastly, after the surgery, if necessary, she can be placed for 24 hours again on magnesium sulfate in terms of quieting the uterus. I do not recommend Procardia nor Indocin as a mean of tocolysis. Dictated By: PHILLIP LOMBARDI/MARK Conf#: [id number] DID#: [id number]
--- NOTE | 2018-05-18 09:37 | QN ---
Documentation Comment 28+ wks s/p laparoscopic appendectomy,omentectomy feeling bloated and burping Vs table NsT currently not on monitor Abdomen is generally -->Continue observation and please continuous monitoring -->NPO and NG Tube --->Surgical management as per General surgery team ALAN MEDRANO M.D. May 18, 2018 09:37
[2018-05-18] MEDS ORDERED: LIDOCAINE 4% CR ONE (09:46)
[2018-05-18] MEDS ORDERED: LIDOCAINE 4% CR TOP ONE (10:00)
--- NOTE | 2018-05-18 12:12 | PN ---
Date/Time of Note Date/Time of Note DATE: 05/18/18 TIME: 12:10 Assessment/Plan VTE Prophylaxis Risk score (from Nsg)>0 risk: 4 SCD applied (from Nsg): Yes Pharmacological prophylaxis: NA/contraindicated Pharm contraindication: low risk/ambulating Lines/Catheters IV Catheter Type (from Nrsg): Peripheral IV Urinary Cath still in place: Yes Reason Cath still needed: other (indicate) Assessment/Plan Hospital Course S: mild abd distention objective : Gen: Thin, well developed woman lying in bed in no acute distress. Eyes: PERRL, no icterus HEENT: Moist mucous membranes, clear oropharynx Neck: Supple, no lymphadenopathy, no JVD Card: Regular rate and rhythm, no murmurs Pulm: diminshed Abd: Gravid and distended. Lap incisions appear clean except suprapubic one which has a dressing over it. Nontender to mild palpation, soft. BENJA drain with serosanguinous nonpurulent output. Ext: Trace LE nonpitting edema. Good peripheral pulses. Skin: warm, dry, well perfused. assessment and plan: 38 yo woman no major PMH presents at 28 weeks with perforated appendicitis, s/p surgery. #Perforated appendicitis - Continue Analgesia: Continue IV dilaudid per surgery; when patient is reliably taking PO can transition to PO norco or dilaudid. - Hydration: Continue current fluids at 125, can stop when patient reliably taking PO. - Abx: ID following. Agree with zosyn. - Encourage ambulation, advance diet as tolerated. - Anticipate postoperative ileus, may need to advance bowel regimen over next few days. #Hypoxia - Likely due to postoperative atelectasis. - Continue incentive spirometry, pain control, ambulation. #DVT ppx - This patient is at high risk of DVT due to recent abdominal surgery and - Continue ambulation at least twice daily. As long as she is mobile no need to start anticoag. - Okay to continue aspirin per OB which may reduce risk of spontaneous . Thank you for the consult. We will continue to follow. Result Diagram: 05/18/18 0536 05/18/18 0536 Results 24hrs Laboratory Tests Test 05/18/18 05:36 White Blood Count 16.1 #H Red Blood Count 2.96 L Hemoglobin 8.6 L Hematocrit 27.3 L Mean Corpuscular Volume 92.2 Mean Corpuscular Hemoglobin 29.1 Mean Corpuscular Hemoglobin Concent 31.5 L Red Cell Distribution Width 13.9 Platelet Count 396 Mean Platelet Volume 9.3 Immature Granulocytes % 1.400 H Neutrophils % 92.3 H Lymphocytes % 3.2 L Monocytes % 2.8 Eosinophils % 0.1 Basophils % 0.2 Nucleated Red Blood Cells % 0.1 H Immature Granulocytes # 0.230 H Neutrophils # 14.9 H Lymphocytes # 0.5 L Monocytes # 0.5 Eosinophils # 0.0 Basophils # 0.0 Nucleated Red Blood Cells # 0.0 Sodium Level 140 Potassium Level 4.0 Chloride Level 107 Carbon Dioxide Level 25 Anion Gap 8 Blood Urea Nitrogen 11 Creatinine 0.61 Est Glomerular Filtrat Rate mL/min > 60 Glucose Level 84 # Calcium Level 8.6 Phosphorus Level 3.0 Magnesium Level 2.0 Exam/Review of Systems Exam Vitals Vital Signs Date Temp Pulse Resp B/P (MAP) Pulse Ox O2 O2 Flow FiO2 Time Delivery Rate 05/18/18 98.4 79 18 129/79 92 Nasal 05:49 (96) Cannula 05/17/18 2.0 22:54 Intake and Output 05/17/18 05/17/18 05/18/18 1515:00 23:00 07:00 IntakeIntake Total 100 ml 1775 ml 1576 ml OutputOutput Total 245 ml 1010 ml 975 ml BalanceBalance -145 ml 765 ml 601 ml Results Results 24hrs Laboratory Tests Test 05/18/18 05:36 White Blood Count 16.1 #H Red Blood Count 2.96 L Hemoglobin 8.6 L Hematocrit 27.3 L Mean Corpuscular Volume 92.2 Mean Corpuscular Hemoglobin 29.1 Mean Corpuscular Hemoglobin Concent 31.5 L Red Cell Distribution Width 13.9 Platelet Count 396 Mean Platelet Volume 9.3 Immature Granulocytes % 1.400 H Neutrophils % 92.3 H Lymphocytes % 3.2 L Monocytes % 2.8 Eosinophils % 0.1 Basophils % 0.2 Nucleated Red Blood Cells % 0.1 H Immature Granulocytes # 0.230 H Neutrophils # 14.9 H Lymphocytes # 0.5 L Monocytes # 0.5 Eosinophils # 0.0 Basophils # 0.0 Nucleated Red Blood Cells # 0.0 Sodium Level 140 Potassium Level 4.0 Chloride Level 107 Carbon Dioxide Level 25 Anion Gap 8 Blood Urea Nitrogen 11 Creatinine 0.61 Est Glomerular Filtrat Rate mL/min > 60 Glucose Level 84 # Calcium Level 8.6 Phosphorus Level 3.0 Magnesium Level 2.0 Medications Medication Current Medications Lactated Ringer's 1,000 ml @ 500 mls/hr Q2H IV* Last administered on 05/16/18 18:17; Admin Dose 500 MLS/HR; Start 05/14/18 at 23:00 Morphine Sulfate (morphine) 4 mg Q2H PRN IV SEVERE PAIN LEVEL 7-10 Last administered on 05/15/18 04:44; Admin Dose 4 MG; Start 05/14/18 at 23:30 Prenat Multivit/ Cold Storage Worker/Iron/Folic Ac () 1 tab DAILY PO Last administered on 05/17/18 11:34; Admin Dose 1 TAB; Start 05/15/18 at 09:00 Ferrous Sulfate (Ferrous Sulfate (Ec)) 325 mg DAILY PO Last administered on 05/17/18 11:34; Admin Dose 325 MG; Start 05/15/18 at 09:00 Acetaminophen (Tylenol Tab) 650 mg Q4H PRN PO .PAIN OR TEMP Last administered on 05/16/18 16:10; Admin Dose 650 MG; Start 05/15/18 at 03:00 Al Hydrox/Mg Hydrox/Simethicone (Mag-Al Plus) 30 ml Q6H PRN PO .GI UPSET Last administered on 05/18/18 07:53; Admin Dose 30 ML; Start 05/15/18 at 03:00 Ondansetron HCl (Zofran Inj) 4 mg Q6H PRN IV NAUSEA/VOMITING; Start 05/15/18 at 03:00 Aspirin (Aspirin) 81 mg DAILY PO Last administered on 05/16/18 10:09; Admin Dose 81 MG; Start 05/15/18 at 12:30 Hydromorphone HCl (Dilaudid) 1 mg Q3H PRN IV SEVERE PAIN LEVEL 7-10 Last administered on 05/18/18 10:14; Admin Dose 1 MG; Start 05/16/18 at 08:01 Piperacillin Sod/ Tazobactam Sod 100 ml @ 200 mls/hr Q8 IVPB Last administered on 05/18/18 12:06; Admin Dose 200 MLS/HR; Start 05/17/18 at 06:00 Dextrose/Lactated Ringer's 1,000 ml @ 125 mls/hr Q8H IV ; Start 05/17/18 at 03:30 Lactated Ringer's 1,000 ml @ 125 mls/hr Q8H IV Last administered on 05/17/18at 13:01; Admin Dose 125 MLS/HR; Start 05/17/18 at 03:30 Sodium Chloride 1,000 ml @ 100 mls/hr Q10H IV Last administered on 05/18/18at 04:06; Admin Dose 100 MLS/HR; Start 05/17/18 at 22:00 Nifedipine (Procardia) 10 mg Q6 PO ; Start 05/18/18 at 08:00 CLIVE ZARATE May 18, 2018 12:11
--- NOTE | 2018-05-18 13:56 | PN ---
Date/Time of Note Date/Time of Note DATE: 05/18/18 TIME: 13:56 Assessment/Plan Lines/Catheters IV Catheter Type (from [facility]): Peripheral IV Sher in Place (from [facility]): Yes Assessment/Plan Chief Complaint/Hosp Course 1. Acute perforated appendicitis with peritonitis and abscesses; Ventral hernia: status post laparoscopic appendectomy and washout, partial sacrectomy, partial omentectomy and ventral hernia repair 05/16/18. Probable paralytic ileus. -IS -ambulate -ice pack to abdominal wall -npo/ngt -drain care -ID/iv abx -pain control 2. Gravid 28 weeks: -Per laborist/perinatology 3.Leukocytosis: Likely 03/28 #1 -As above -Monitor 4. Hypochromic anemia -Monitor and transfuse as needed Thank you, Subjective 24 Hr Interval Summary s/p appendectomy 05/17. Worsened abdominal pain with nausea and vomiting. Leukocytosis. Bloating. Difficulty to ambulate. No fevers, chills, sob, congested cough, cp, palpitations, strong, dizziness, dysuria. No flatus nor bm. Exam/Review of Systems Vital Signs Vitals Vital Signs Date Temp Pulse Resp B/P (MAP) Pulse Ox O2 O2 Flow FiO2 Time Delivery Rate 05/18/18 98.0 19:54 05/18/18 79 18 129/79 92 Nasal 05:49 (96) Cannula 05/17/18 2.0 22:54 Intake and Output 05/18/18 05/18/18 05/19/18 1515:00 23:00 07:00 IntakeIntake Total 500 ml 1300 ml 700 ml OutputOutput Total 1500 ml 1150 ml 1035 ml BalanceBalance -1000 ml 150 ml -335 ml Exam Free Text/Dictation Constitutional: alert, oriented, anxious/uncomfortable Psych: anxiety (Minimal) Head: normocephalic, atraumatic Eyes: nl conjunctiva, EOMI, nl lids, nl sclera ENMT: nl external ears & nose, nl lips & teeth, nl nasal mucosa & septum, mucosa pink and moist Neck: supple, non-tender; No jvd Respiratory: normal air movement; No congested cough Cardiovascular: regular rate and rhythm, nl pulses; No edema Gastrointestinal: soft, tender, other (Gravid; jared drain serosang); No rebound or guarding Musculoskeletal: nl extremities to inspection, nl gait and stance Extremities: normal pulses Neurological: nl mental status, nl speech, nl strength Skin: No rash or lesions Lymph: nl lymph nodes Results Result Diagram: 05/19/18 0450 05/19/18 0450 SUNDAR SMITH MD May 18, 2018 13:56
[2018-05-18] MEDS ORDERED: HYDROmorphONE 2 MG/ML SYG IV PRN (14:00)
[2018-05-18] MEDS ORDERED: HYDROmorphONE 0.5 MG/0.5 ML SYG IV PRN (14:01)
[2018-05-18] MEDS ORDERED: traMADol 50 MG TAB PO PRN (14:30)
[2018-05-18] MEDS: ACETAMINOPHEN 1000MG/100ML IV 100 ML IVPB SCH ×2 (14:37→20:02)
--- NOTE | 2018-05-18 15:24 | CONS ---
Assessment/Plan Assessment/Plan Hospital Course (Demo Recall) No acute changes overnight patient is alert complaining of pain no fevers overnight WBC today 16.1 platelets 396 neutrophils 92.3 BUN 11 creatinine 0.61 Antimicrobials: Zosyn Indwelling: Sher catheter, right BENJA Physical examination: This is a well-developed well-nourished ill-appearing m iddle-aged woman who is awake in no distress. Head atraumatic normocephalic sclera nonicteric. Neck is supple. Chest rise symmetrical breath sounds diminished bases. Heart: S1-S2. Abdomen distended bowel tones hypoactive extremities without cyanosis Assessment: 1. Systemic inflammatory response syndrome 2. Acute perforated appendicitis, status post laparoscopic appendectomy with washout and partial omentectomy 05/16/18 3. 28 weeks 4. History of multiple miscarriages Plan: Clinically stable, WBC trending down, continue present care and antibiotics, pain management, encourage incentive spirometry Consultation Date/Type/Reason Admit Date/Time May 15, 2018 at 03:00 Initial Consult Date 05/17/18 Type of Consult id Requesting Provider: JENA MON NP Date/Time of Note DATE: 05/18/18 TIME: 15:24 Exam/Review of Systems Exam Vitals Vital Signs Date Temp Pulse Resp B/P (MAP) Pulse Ox O2 O2 Flow FiO2 Time Delivery Rate 05/18/18 98.4 79 18 129/79 92 Nasal 05:49 (96) Cannula 05/17/18 2.0 22:54 Intake and Output 05/17/18 05/17/18 05/18/18 1515:00 23:00 07:00 IntakeIntake Total 100 ml 1775 ml 1576 ml OutputOutput Total 245 ml 1010 ml 975 ml BalanceBalance -145 ml 765 ml 601 ml Results Result Diagram: 05/18/18 0536 05/18/18 0536 Results 24hrs Laboratory Tests Test 05/18/18 05:36 White Blood Count 16.1 #H Red Blood Count 2.96 L Hemoglobin 8.6 L Hematocrit 27.3 L Mean Corpuscular Volume 92.2 Mean Corpuscular Hemoglobin 29.1 Mean Corpuscular Hemoglobin Concent 31.5 L Red Cell Distribution Width 13.9 Platelet Count 396 Mean Platelet Volume 9.3 Immature Granulocytes % 1.400 H Neutrophils % 92.3 H Lymphocytes % 3.2 L Monocytes % 2.8 Eosinophils % 0.1 Basophils % 0.2 Nucleated Red Blood Cells % 0.1 H Immature Granulocytes # 0.230 H Neutrophils # 14.9 H Lymphocytes # 0.5 L Monocytes # 0.5 Eosinophils # 0.0 Basophils # 0.0 Nucleated Red Blood Cells # 0.0 Sodium Level 140 Potassium Level 4.0 Chloride Level 107 Carbon Dioxide Level 25 Anion Gap 8 Blood Urea Nitrogen 11 Creatinine 0.61 Est Glomerular Filtrat Rate mL/min > 60 Glucose Level 84 # Calcium Level 8.6 Phosphorus Level 3.0 Magnesium Level 2.0 Medications Medication Current Medications Lactated Ringer's 1,000 ml @ 500 mls/hr Q2H IV* Last administered on 05/16/18 18:17; Admin Dose 500 MLS/HR; Start 05/14/18 at 23:00 Prenat Multivit/ Marine Machinist/Iron/Folic Ac () 1 tab DAILY PO Last administered on 05/17/18 11:34; Admin Dose 1 TAB; Start 05/15/18 at 09:00 Ferrous Sulfate (Ferrous Sulfate (Ec)) 325 mg DAILY PO Last administered on 05/17/18 11:34; Admin Dose 325 MG; Start 05/15/18 at 09:00 Acetaminophen (Tylenol Tab) 650 mg Q4H PRN PO .PAIN OR TEMP Last administered on 05/16/18 16:10; Admin Dose 650 MG; Start 05/15/18 at 03:00; Status Hold Al Hydrox/Mg Hydrox/Simethicone (Mag-Al Plus) 30 ml Q6H PRN PO .GI UPSET Last administered on 05/18/18 07:53; Admin Dose 30 ML; Start 05/15/18 at 03:00 Ondansetron HCl (Zofran Inj) 4 mg Q6H PRN IV NAUSEA/VOMITING; Start 05/15/18 at 03:00 Aspirin (Aspirin) 81 mg DAILY PO Last administered on 05/16/18 10:09; Admin Dose 81 MG; Start 05/15/18 at 12:30 Piperacillin Sod/ Tazobactam Sod 100 ml @ 200 mls/hr Q8 IVPB Last administered on 05/18/18 12:06; Admin Dose 200 MLS/HR; Start 05/17/18 at 06:00 Dextrose/Lactated Ringer's 1,000 ml @ 125 mls/hr Q8H IV ; Start 05/17/18 at 03:30 Lactated Ringer's 1,000 ml @ 125 mls/hr Q8H IV Last administered on 05/17/18at 13:01; Admin Dose 125 MLS/HR; Start 05/17/18 at 03:30 Sodium Chloride 1,000 ml @ 100 mls/hr Q10H IV Last administered on 05/18/18at 13:13; Admin Dose 100 MLS/HR; Start 05/17/18 at 22:00 Nifedipine (Procardia) 10 mg Q6 PO ; Start 05/18/18 at 08:00 Hydromorphone HCl (Dilaudid) 1 mg Q2H PRN IV SEVERE PAIN LEVEL 4-6; Start 05/18/18 at 14:01 Acetaminophen 100 ml @ 400 mls/hr Q6H IVPB Last administered on 05/18/18at 14:37; Admin Dose 400 MLS/HR; Start 05/18/18 at 14:00; Stop 05/19/18 at 13:59 Tramadol HCl (Ultram) 100 mg Q6H PRN PO MODERATE PAIN LEVEL 1-3; Start 05/18/18 at 14:30 Hydromorphone HCl (Dilaudid) 2 mg Q2H PRN IV SEVERE PAIN LEVEL 7-10; Start 05/18/18 at 14:00 JACKIE DO NP May 18, 2018 15:24
[2018-05-18] MEDS: LACTATED RINGER'S 1,000 ML IV* SCH ×5 (19:00→19:58)
[2018-05-18] MEDS: DEXTROSE 5%-LR 1,000 ML IV SCH ×3 (19:30→19:56)
[2018-05-18] MEDS: LACTATED RINGER'S 1,000 ML IV SCH ×3 (19:30→19:56)
[2018-05-18] MEDS: NIFEdipine 10 MG CAP PO SCH ×3 (19:54→19:56)
[2018-05-18] MEDS: FERROUS SULFATE (EC) 325 MG TAB PO SCH (19:55)
[2018-05-18] MEDS: PRENATAL VITAMIN PO SCH (19:55)
[2018-05-18] MEDS: ASPIRIN 81 MG TAB PO SCH (19:55)
--- NOTE | 2018-05-18 22:02 | PN ---
Date/Time of Note Date/Time of Note DATE: 05/18/18 TIME: 22:02 Assessment/Plan Lines/Catheters IV Catheter Type (from [facility]): Peripheral IV Sher in Place (from [facility]): Yes Exam/Review of Systems Vital Signs Vitals Vital Signs Date Temp Pulse Resp B/P (MAP) Pulse Ox O2 O2 Flow FiO2 Time Delivery Rate 05/18/18 98.0 19:54 05/18/18 79 18 129/79 92 Nasal 05:49 (96) Cannula 05/17/18 2.0 22:54 Intake and Output 05/18/18 05/18/18 05/19/18 1515:00 23:00 07:00 IntakeIntake Total 500 ml 1300 ml 700 ml OutputOutput Total 1500 ml 1150 ml 1035 ml BalanceBalance -1000 ml 150 ml -335 ml Results Result Diagram: 05/19/18 0450 05/19/18 0450 SUNDAR SMITH MD May 18, 2018 22:02
[2018-05-19] MEDS ORDERED: MAGNESIUM SULFATE 2 GM/50 ML 50 ML IVPB STA (00:43)
[2018-05-19] MEDS ORDERED: PHENOL 1.4% SOLN 180 ML BTL MT PRN (01:00)
--- NOTE | 2018-05-19 01:34 | QN ---
Documentation Comment Laborist Note Called to see pt as it was noticed that she has started to contract again.She had been on Procardia but now unable to take anything orally as she has an NGT so will start Magnesium. Pt does not feel the contractions but they are q 7 minutes. Will give a low dose 2 gm bolus and then go to 1 gm/hr and will go up as necessary. Also ordered Chloraseptic spray to help her mouth feel better. Has definite gastric output on suction and abdomen still with distention with tympany.. Continue care. BLAS HEADLEY MD May 19, 2018 01:34
[2018-05-19] MEDS: ACETAMINOPHEN 1000MG/100ML IV 100 ML IVPB SCH ×2 (01:57→08:28)
[2018-05-19] MEDS ORDERED: MAGNESIUM SULFATE 20 GM/500 ML 500 ML IV SCH (02:00)
[2018-05-19] MEDS ORDERED: CA GLUCONATE (GM) 10% 10ML INJ IV PRN (04:00)
[2018-05-19] MEDS: PIPER-TAZO 3.375 GM IV (PMX) 100 ML IVPB SCH ×3 (05:50→22:00)
[2018-05-19] MEDS ORDERED: DEXTROSE 5%-LR 1,000 ML IV PRN (07:00)
[2018-05-19] MEDS ORDERED: LACTATED RINGER'S 1,000 ML IV PRN (07:00)
[2018-05-19] MEDS: DEXTROSE 5%-0.45% NACL 1,000 ML IV SCH ×2 (11:26→18:39)
[2018-05-19] MEDS: MAGNESIUM SULFATE 20 GM/500 ML 500 ML IV SCH ×2 (13:45→19:00)
[2018-05-19] MEDS: SOD CHLORIDE 0.9% 1,000 ML IV SCH (13:49)
[2018-05-19] MEDS ORDERED: SENNA TAB PO SCH (16:00)
--- NOTE | 2018-05-19 16:43 | CONS ---
Assessment/Plan Assessment/Plan Hospital Course (Demo Recall) Alert, feels better, tolerating clear liquid diet, no fevers Antimicrobials: Zosyn Physical examination: This is a well-developed well-nourished ill-appearing middle-aged woman who is awake in no distress. Head atraumatic normocephalic sclera nonicteric. Neck is supple. Chest rise symmetrical breath sounds diminished bases. Heart: S1-S2. Abdomen soft, + BT extremities without cyanosis Assessment: 1. Systemic inflammatory response syndrome 2. Acute perforated appendicitis, status post laparoscopic appendectomy with washout and partial omentectomy 05/16/18 3. 28 weeks 4. History of multiple miscarriages Plan: Doing better, WBC trending down, continue present care and antibiotics, surgical rec-s Consultation Date/Type/Reason Admit Date/Time May 15, 2018 at 03:00 Initial Consult Date 05/17/18 Type of Consult id Requesting Provider: JENA MON NP Date/Time of Note DATE: 05/19/18 TIME: 16:41 Exam/Review of Systems Exam Vitals Vital Signs Date Temp Pulse Resp B/P (MAP) Pulse Ox O2 O2 Flow FiO2 Time Delivery Rate 05/18/18 98.0 19:54 05/18/18 79 18 129/79 92 Nasal 05:49 (96) Cannula 05/17/18 2.0 22:54 Intake and Output 05/18/18 05/18/18 05/19/18 1515:00 23:00 07:00 IntakeIntake Total 500 ml 1300 ml 700 ml OutputOutput Total 1500 ml 1150 ml 1035 ml BalanceBalance -1000 ml 150 ml -335 ml Results Result Diagram: 05/19/18 0450 05/19/18 0450 Results 24hrs Laboratory Tests Test 05/19/18 04:49 05/19/18 04:50 05/19/18 14:45 Lactic Acid Level 0.7 White Blood Count 15.6 H Red Blood Count 2.94 L Hemoglobin 8.3 L Hematocrit 26.4 L Mean Corpuscular Volume 89.8 Mean Corpuscular Hemoglobin 28.2 L Mean Corpuscular Hemoglobin Concent 31.4 L Red Cell Distribution Width 13.8 Platelet Count 371 Mean Platelet Volume 9.1 Immature Granulocytes % 1.800 H Neutrophils % 89.5 H Lymphocytes % 3.7 L Monocytes % 4.6 Eosinophils % 0.2 Basophils % 0.2 Nucleated Red Blood Cells % 0.0 Immature Granulocytes # 0.280 H Neutrophils # 13.9 H Lymphocytes # 0.6 L Monocytes # 0.7 Eosinophils # 0.0 Basophils # 0.0 Nucleated Red Blood Cells # 0.0 Sodium Level 138 Potassium Level 3.6 Chloride Level 108 Carbon Dioxide Level 20 L Anion Gap 10 Blood Urea Nitrogen 9 Creatinine 0.46 Est Glomerular Filtrat Rate mL/min > 60 Glucose Level 68 #L Calcium Level 8.1 L Magnesium Level 3.0 H 5.0 #H Total Bilirubin 0.5 Direct Bilirubin 0.10 Indirect Bilirubin 0.4 Aspartate Amino Transf (AST/SGOT) 21 Alanine Aminotransferase (ALT/SGPT) 18 Alkaline Phosphatase 103 Total Protein 5.0 L Albumin 2.5 L Globulin 2.50 Albumin/Globulin Ratio 1.00 Medications Medication Current Medications Prenat Multivit/ Office Nurse Practitioner/Iron/Folic Ac () 1 tab DAILY PO Last administered on 05/17/18 11:34; Admin Dose 1 TAB; Start 05/15/18 at 09:00 Ferrous Sulfate (Ferrous Sulfate (Ec)) 325 mg DAILY PO Last administered on 05/17/18 11:34; Admin Dose 325 MG; Start 05/15/18 at 09:00 Acetaminophen (Tylenol Tab) 650 mg Q4H PRN PO .PAIN OR TEMP Last administered on 05/16/18 16:10; Admin Dose 650 MG; Start 05/15/18 at 03:00 Al Hydrox/Mg Hydrox/Simethicone (Mag-Al Plus) 30 ml Q6H PRN PO .GI UPSET Last administered on 05/18/18 07:53; Admin Dose 30 ML; Start 05/15/18 at 03:00 Ondansetron HCl (Zofran Inj) 4 mg Q6H PRN IV NAUSEA/VOMITING; Start 05/15/18 at 03:00 Aspirin (Aspirin) 81 mg DAILY PO Last administered on 05/16/18 10:09; Admin Dose 81 MG; Start 05/15/18 at 12:30 Piperacillin Sod/ Tazobactam Sod 100 ml @ 200 mls/hr Q8 IVPB Last administered on 05/19/18 13:57; Admin Dose 200 MLS/HR; Start 05/17/18 at 06:00 Sodium Chloride 1,000 ml @ 100 mls/hr Q10H IV Last administered on 05/18/18at 22:30; Admin Dose 100 MLS/HR; Start 05/17/18 at 22:00 Hydromorphone HCl (Dilaudid) 1 mg Q2H PRN IV SEVERE PAIN LEVEL 4-6; Start 05/18/18 at 14:01 Tramadol HCl (Ultram) 100 mg Q6H PRN PO MODERATE PAIN LEVEL 1-3; Start 05/18/18 at 14:30 Hydromorphone HCl (Dilaudid) 2 mg Q2H PRN IV SEVERE PAIN LEVEL 7-10; Start 05/18/18 at 14:00 Dextrose/Lactated Ringer's 1,000 ml @ 125 mls/hr Q8H PRN IV PER MD; Start 05/19/18 at 07:00 Lactated Ringer's 1,000 ml @ 125 mls/hr Q8H PRN IV per MD; Start 05/19/18 at 07:00 Phenol (Chloraseptic Throat Moira) 2 spray Q2H PRN MT SORE THROAT Last a dministered on 05/19/18at 01:40; Admin Dose 2 SPRAY; Start 05/19/18 at 01:00 Calcium Gluconate (Ca Gluc) 1 gm ONCE PRN IV FOR MAGNESIUM TOXICITY; Start 05/19/18 at 04:00 Magnesium Sulfate 500 ml @ 50 mls/hr Q10H IV Last administered on 05/19/18at 13:45; Admin Dose 50 MLS/HR; Start 05/19/18 at 09:00 Dextrose/Sodium Chloride 1,000 ml @ 100 mls/hr Q10H IV Last administered on 05/19/18at 11:26; Admin Dose 100 MLS/HR; Start 05/19/18 at 09:00 Simethicone (Mylicon) 80 mg Q6 PO ; Start 05/19/18 at 18:00 JACKIE DO NP May 19, 2018 16:43
--- NOTE | 2018-05-19 17:46 | PN ---
Date/Time of Note Date/Time of Note DATE: 05/19/18 TIME: 17:43 Assessment/Plan Lines/Catheters IV Catheter Type (from [facility]): Peripheral IV Sher in Place (from [facility]): No Assessment/Plan Chief Complaint/Hosp Course 1. Acute perforated appendicitis with peritonitis and abscesses; Ventral hernia: status post laparoscopic appendectomy and washout, partial sacrectomy, partial omentectomy and ventral hernia repair 05/16/18. Probable paralytic ileus > improving -IS -ambulate -ice pack to abdominal wall -slow diet advancement as tolerated -drain care -ID/iv abx -pain control 2. Gravid 28 weeks: -Per laborist/perinatology 3.Leukocytosis: Likely 2/2 #1 -As above -Monitor 4. Hypochromic anemia -Monitor and transfuse as needed Thank you, Subjective 24 Hr Interval Summary Passing gas today. NGT output decreased. Leukocytosis improving. Bloating improving. Ambulating more. No fevers, chills, sob, congested cough, cp, pal pitations, strong, dizziness, dysuria. No bm. NGT removed. Exam/Review of Systems Vital Signs Vitals Vital Signs Date Temp Pulse Resp B/P (MAP) Pulse Ox O2 O2 Flow FiO2 Time Delivery Rate 05/18/18 98.0 19:54 05/18/18 79 18 129/79 92 Nasal 05:49 (96) Cannula 05/17/18 2.0 22:54 Intake and Output 05/18/18 05/18/18 05/19/18 1515:00 23:00 07:00 IntakeIntake Total 500 ml 1300 ml 700 ml OutputOutput Total 1500 ml 1150 ml 1035 ml BalanceBalance -1000 ml 150 ml -335 ml Exam Free Text/Dictation Constitutional: alert, oriented, anxious/uncomfortable Psych: anxiety (Minimal) Head: normocephalic, atraumatic Eyes: nl conjunctiva, EOMI, nl lids, nl sclera ENMT: nl external ears & nose, nl lips & teeth, nl nasal mucosa & septum, mucosa pink and moist Neck: supple, non-tender; No jvd Respiratory: normal air movement; No congested cough Cardiovascular: regular rate and rhythm, nl pulses; No edema Gastrointestinal: soft, decreased tender, Gravid; jared drain serosang; No rebound or guarding Musculoskeletal: nl extremities to inspection, nl gait and stance Extremities: normal pulses Neurological: nl mental status, nl speech, nl strength Skin: No rash or lesions Lymph: nl lymph nodes Results Result Diagram: 05/19/18 0450 05/19/18 0450 SUNDAR SMITH MD May 19, 2018 17:46
--- NOTE | 2018-05-19 18:26 | QN ---
Documentation Comment patient is seen at the bedside ,She feels improved Vs stable Gen NAD Abd soft ND mildly distended NST reassuring [place] No CTxs Mg started knockdown man --->close observation --->Surgical management as per ALAN Durán M.D. May 19, 2018 18:26
[2018-05-19] MEDS: ACETAMINOPHEN 325 MG TAB PO PRN ×2 (19:54→23:55)
[2018-05-20] MEDS: ACETAMINOPHEN 325 MG TAB PO PRN ×5 (04:07→20:13)
[2018-05-20] MEDS: DEXTROSE 5%-0.45% NACL 1,000 ML IV SCH ×2 (04:18→20:10)
[2018-05-20] MEDS: MAGNESIUM SULFATE 20 GM/500 ML 500 ML IV SCH ×2 (05:00→08:43)
[2018-05-20] MEDS: PIPER-TAZO 3.375 GM IV (PMX) 100 ML IVPB SCH ×3 (05:58→21:43)
[2018-05-20] MEDS: FERROUS SULFATE (EC) 325 MG TAB PO SCH ×2 (08:17→09:00)
[2018-05-20] MEDS: PRENATAL VITAMIN PO SCH ×2 (08:17→09:00)
[2018-05-20] MEDS: SOD CHLORIDE 0.9% 1,000 ML IV SCH ×2 (10:00)
--- NOTE | 2018-05-20 10:18 | EN ---
Date/Time of Note Date/Time of Note DATE of evaluation : 05/19/18 TIME: 10:18 Event Note Medicine Medicine Event Note S: wants something to drink, wants to go home, intermittent pain controlled with tylenol, tries to ambulate objective : Gen: Thin, well developed woman lying in bed , anxioux Eyes: PERRL, no icterus HEENT: Moist mucous membranes, clear oropharynx, NGT Neck: Supple, no lymphadenopathy, no JVD Card: Regular rate and rhythm, no murmurs Pulm: diminshed Abd: Gravid and distended. Lap incisions appear clean except suprapubic one which has a dressing over it. Nontender to mild palpation, soft. BENJA drain with serosanguinous nonpurulent output. still with good vol Ext: Trace LE nonpitting edema. Good peripheral pulses. Skin: warm, dry, well perfused. assessment and plan: 38 yo woman no major PMH presents at 28 weeks with perforated appendicitis, s/p surgery. #Acute perforated appendicitis with peritonitis and abscesses; Ventral hernia: status post laparoscopic appendectomy and washout, partial sacrectomy, partial omentectomy and ventral hernia repair 05/16/18, now with post op ileus -ice chips, NGT remains to suction, surgery managing -continue abx #Hypoxia: improved - Likely due to postoperative atelectasis. - Continue incentive spirometry, pain control, ambulation. #DVT ppx - This patient is at high risk of DVT due to recent abdominal surgery and - Continue ambulation at least twice daily. As long as she is mobile no need to start anticoag. - Okay to continue aspirin per OB which may reduce risk of spontaneous . Thank you for the consult. We will continue to follow. CLIVE ZARATE May 20, 2018 10:18
--- NOTE | 2018-05-20 10:18 | PN ---
Date/Time of Note Date/Time of Note DATE: 05/20/18 TIME: 10:18 Assessment/Plan VTE Prophylaxis Risk score (from Nsg)>0 risk: 4 SCD applied (from Nsg): Yes Pharmacological prophylaxis: other Lines/Catheters IV Catheter Type (from Nrsg): Peripheral IV Urinary Cath still in place: No Assessment/Plan Hospital Course S: NGT was removed yesterday, patient is happier, has not taken much PO however, she doesn't want to push it objective : Gen: Thin, well developed woman lying in bed in no acute distress. Eyes: PERRL, no icterus HEENT: Moist mucous membranes, clear oropharynx Neck: Supple, no lymphadenopathy, no JVD Card: Regular rate and rhythm, no murmurs Pulm: diminshed Abd: Gravid and distended. Lap incisions appear clean except suprapubic one which has a dressing over it. Nontender to mild palpation, soft. BENJA drain with serosanguinous nonpurulent output. Ext: Trace LE nonpitting edema. Good peripheral pulses. Skin: warm, dry, well perfused. assessment and plan: 38 yo woman no major PMH presents at 28 weeks with perforated appendicitis, s/p surgery. #Chief Complaint/Hosp Course 1. Acute perforated appendicitis with peritonitis and abscesses; Ventral hernia: status post laparoscopic appendectomy and washout, partial sacrectomy, partial omentectomy and ventral hernia repair 05/16/18. Probable paralytic ileus > improving -advance diet as tolerated per surgery, monitor wbc count -patient can go out for fresh air #Hypoxia: resolved - Likely due to postoperative atelectasis. - Continue incentive spirometry, pain control, ambulation. #DVT ppx - This patient is at high risk of DVT due to recent abdominal surgery and - Continue ambulation at least twice daily. As long as she is mobile no need to start anticoag. - Okay to continue aspirin per OB which may reduce risk of spontaneous . Thank you for the consult. We will continue to follow. Result Diagram: 05/20/18 0907 05/19/18 0450 Results 24hrs Laboratory Tests Test 05/19/18 14:45 05/20/18 00:57 05/20/18 05:42 05/20/18 09:07 Magnesium Level 5.0 #H 4.3 H 4.5 H White Blood Count 12.8 H Red Blood Count 3.00 L Hemoglobin 8.5 L Hematocrit 26.7 L Mean Corpuscular 89.0 Volume Mean Corpuscular 28.3 L Hemoglobin Mean Corpuscular 31.8 L Hemoglobin Concent Red Cell 13.7 Distribution Width Platelet Count 365 Mean Platelet Volume 8.5 Immature 2.700 H Granulocytes % Neutrophils % 85.2 H Lymphocytes % 4.4 L Monocytes % 5.8 Eosinophils % 1.6 Basophils % 0.3 Nucleated Red Blood 0.2 H Cells % Immature 0.350 H Granulocytes # Neutrophils # 10.9 H Lymphocytes # 0.6 L Monocytes # 0.7 Eosinophils # 0.2 Basophils # 0.0 Nucleated Red Blood 0.0 Cells # Exam/Review of Systems Exam Vitals Vital Signs Date Temp Pulse Resp B/P (MAP) Pulse Ox O2 O2 Flow FiO2 Time Delivery Rate 05/18/18 98.0 19:54 05/18/18 79 18 129/79 92 Nasal 05:49 (96) Cannula 05/17/18 2.0 22:54 Intake and Output 05/19/18 05/19/18 05/20/18 1414:59 22:59 06:59 IntakeIntake Total 850 ml 1425 ml 1300 ml OutputOutput Total 1300 ml 1380 ml 920 ml BalanceBalance -450 ml 45 ml 380 ml Results Results 24hrs Laboratory Tests Test 05/19/18 14:45 05/20/18 00:57 05/20/18 05:42 05/20/18 09:07 Magnesium Level 5.0 #H 4.3 H 4.5 H White Blood Count 12.8 H Red Blood Count 3.00 L Hemoglobin 8.5 L Hematocrit 26.7 L Mean Corpuscular 89.0 Volume Mean Corpuscular 28.3 L Hemoglobin Mean Corpuscular 31.8 L Hemoglobin Concent Red Cell 13.7 Distribution Width Platelet Count 365 Mean Platelet Volume 8.5 Immature 2.700 H Granulocytes % Neutrophils % 85.2 H Lymphocytes % 4.4 L Monocytes % 5.8 Eosinophils % 1.6 Basophils % 0.3 Nucleated Red Blood 0.2 H Cells % Immature 0.350 H Granulocytes # Neutrophils # 10.9 H Lymphocytes # 0.6 L Monocytes # 0.7 Eosinophils # 0.2 Basophils # 0.0 Nucleated Red Blood 0.0 Cells # Medications Medication Current Medications Prenat Multivit/ [employer]/Iron/Folic Ac () 1 tab DAILY PO Last administered on 05/20/18at 08:17; Admin Dose 1 TAB; Start 05/15/18 at 09:00 Ferrous Sulfate (Ferrous Sulfate (Ec)) 325 mg DAILY PO Last administered on 05/20/18at 08:17; Admin Dose 325 MG; Start 05/15/18 at 09:00 Acetaminophen (Tylenol Tab) 650 mg Q4H PRN PO .PAIN OR TEMP Last administered on 05/20/18at 08:18; Admin Dose 650 MG; Start 05/15/18 at 03:00 Al Hydrox/Mg Hydrox/Simethicone (Mag-Al Plus) 30 ml Q6H PRN PO .GI UPSET Last administered on 05/18/18at 07:53; Admin Dose 30 ML; Start 05/15/18 at 03:00 Ondansetron HCl (Zofran Inj) 4 mg Q6H PRN IV NAUSEA/VOMITING; Start 05/15/18 at 03:00 Aspirin (Aspirin) 81 mg DAILY PO Last administered on 05/16/18at 10:09; Admin Dose 81 MG; Start 05/15/18 at 12:30 Piperacillin Sod/ Tazobactam Sod 100 ml @ 200 mls/hr Q8 IVPB Last administered on 05/20/18at 05:58; Admin Dose 200 MLS/HR; Start 05/17/18 at 06:00 Sodium Chloride 1,000 ml @ 100 mls/hr Q10H IV Last administered on 05/18/18at 22:30; Admin Dose 100 MLS/HR; Start 05/17/18 at 22:00 Hydromorphone HCl (Dilaudid) 1 mg Q2H PRN IV SEVERE PAIN LEVEL 4-6; Start 05/18/18 at 14:01 Tramadol HCl (Ultram) 100 mg Q6H PRN PO MODERATE PAIN LEVEL 1-3; Start 05/18/18 at 14:30 Hydromorphone HCl (Dilaudid) 2 mg Q2H PRN IV SEVERE PAIN LEVEL 7-10; Start 05/18/18 at 14:00 Dextrose/Lactated Ringer's 1,000 ml @ 125 mls/hr Q8H PRN IV PER MD; Start 05/19/18 at 07:00 Lactated Ringer's 1,000 ml @ 125 mls/hr Q8H PRN IV per MD; Start 05/19/18 at 07:00 Phenol (Chloraseptic Throat [place]) 2 spray Q2H PRN MT SORE THROAT Last administered on 05/19/18at 01:40; Admin Dose 2 SPRAY; Start 05/19/18 at 01:00 Calcium Gluconate (Ca Gluc) 1 gm ONCE PRN IV FOR MAGNESIUM TOXICITY; Start 05/19/18 at 04:00 Magnesium Sulfate 500 ml @ 50 mls/hr Q10H IV Last administered on 05/20/18at 08:43; Admin Dose 50 MLS/HR; Start 05/19/18 at 09:00 Dextrose/Sodium Chloride 1,000 ml @ 50 mls/hr Q20H IV Last administered on 05/20/18at 04:18; Admin Dose 100 MLS/HR; Start 05/19/18 at 09:00 Simethicone (Mylicon) 80 mg Q6 PO Last administered on 05/20/18at 05:57; Admin D ose 80 MG; Start 05/19/18 at 18:00 Docusate Sodium (Colace) 200 mg BID PO ; Start 05/20/18 at 10:30 CLIVE ZARATE May 20, 2018 10:18
[2018-05-20] MEDS: DOCUSATE SODIUM 100 MG CAP PO SCH ×2 (10:30→20:12)
[2018-05-20] MEDS: ASPIRIN 81 MG TAB PO SCH (12:20)
--- NOTE | 2018-05-20 12:33 | CONS ---
Assessment/Plan Assessment/Plan Hospital Course (Demo Recall) No events Antimicrobials: Zosyn Physical examination: This is a well-developed well-nourished ill-appearing middle-aged woman who is awake in no distress. Head atraumatic normocephalic sclera nonicteric. Neck is supple. Chest rise symmetrical breath sounds diminished bases. Heart: S1-S2. Abdomen soft, + BT extremities without cyanosis Assessment: 1. Systemic inflammatory response syndrome 2. Acute perforated appendicitis, status post laparoscopic appendectomy with washout and partial omentectomy 05/16/18 3. 28 weeks 4. History of multiple miscarriages Plan: Stable, WBC trending down, continue present care, antibiotics for couple more days DW DR Das Consultation Date/Type/Reason Admit Date/Time May 15, 2018 at 03:00 Initial Consult Date 05/17/18 Type of Consult id Requesting Provider: JENA MON NP Date/Time of Note DATE: 05/20/18 TIME: 12:31 Exam/Review of Systems Exam Vitals Vital Signs Date Temp Pulse Resp B/P (MAP) Pulse Ox O2 O2 Flow FiO2 Time Delivery Rate 05/18/18 98.0 19:54 05/18/18 79 18 129/79 92 Nasal 05:49 (96) Cannula 05/17/18 2.0 22:54 Intake and Output 05/19/18 05/19/18 05/20/18 1515:00 23:00 07:00 IntakeIntake Total 850 ml 1525 ml 1200 ml OutputOutput Total 1300 ml 1380 ml 920 ml BalanceBalance -450 ml 145 ml 280 ml Results Result Diagram: 05/20/18 0907 05/19/18 0450 Results 24hrs Laboratory Tests Test 05/19/18 14:45 05/20/18 00:57 05/20/18 05:42 05/20/18 09:07 Magnesium Level 5.0 #H 4.3 H 4.5 H White Blood Count 12.8 H Red Blood Count 3.00 L Hemoglobin 8.5 L Hematocrit 26.7 L Mean Corpuscular 89.0 Volume Mean Corpuscular 28.3 L Hemoglobin Mean Corpuscular 31.8 L Hemoglobin Concent Red Cell 13.7 Distribution Width Platelet Count 365 Mean Platelet Volume 8.5 Immature 2.700 H Granulocytes % Neutrophils % 85.2 H Lymphocytes % 4.4 L Monocytes % 5.8 Eosinophils % 1.6 Basophils % 0.3 Nucleated Red Blood 0.2 H Cells % Immature 0.350 H Granulocytes # Neutrophils # 10.9 H Lymphocytes # 0.6 L Monocytes # 0.7 Eosinophils # 0.2 Basophils # 0.0 Nucleated Red Blood 0.0 Cells # Medications Medication Current Medications Prenat Multivit/ [place]/Iron/Folic Ac () 1 tab DAILY PO Last administered on 05/20/18 09:00; Admin Dose 1 TAB; Start 05/15/18 at 09:00 Ferrous Sulfate (Ferrous Sulfate (Ec)) 325 mg DAILY PO Last administered on 05/20/18 09:00; Admin Dose 325 MG; Start 05/15/18 at 09:00 Acetaminophen (Tylenol Tab) 650 mg Q4H PRN PO .PAIN OR TEMP Last administered on 05/20/18 12:24; Admin Dose 650 MG; Start 05/15/18 at 03:00 Al Hydrox/Mg Hydrox/Simethicone (Mag-Al Plus) 30 ml Q6H PRN PO .GI UPSET Last administered on 05/18/18 07:53; Admin Dose 30 ML; Start 05/15/18 at 03:00 Ondansetron HCl (Zofran Inj) 4 mg Q6H PRN IV NAUSEA/VOMITING; Start 05/15/18 at 03:00 Aspirin (Aspirin) 81 mg DAILY PO Last administered on 05/20/18 12:20; Admin Dose 81 MG; Start 05/15/18 at 12:30 Piperacillin Sod/ Tazobactam Sod 100 ml @ 200 mls/hr Q8 IVPB Last administered on 05/20/18 05:58; Admin Dose 200 MLS/HR; Start 05/17/18 at 06:00 Sodium Chloride 1,000 ml @ 100 mls/hr Q10H IV Last administered on 05/18/18 22:30; Admin Dose 100 MLS/HR; Start 05/17/18 at 22:00 Hydromorphone HCl (Dilaudid) 1 mg Q2H PRN IV SEVERE PAIN LEVEL 4-6; Start 05/18/18 at 14:01 Tramadol HCl (Ultram) 100 mg Q6H PRN PO MODERATE PAIN LEVEL 1-3; Start 05/18/18 at 14:30 Hydromorphone HCl (Dilaudid) 2 mg Q2H PRN IV SEVERE PAIN LEVEL 7-10; Start 05/18/18 at 14:00 Dextrose/Lactated Ringer's 1,000 ml @ 125 mls/hr Q8H PRN IV PER MD; Start 05/19/18 at 07:00 Lactated Ringer's 1,000 ml @ 125 mls/hr Q8H PRN IV per MD; Start 05/19/18 at 07:00 Phenol (Chloraseptic Throat [place]) 2 spray Q2H PRN MT SORE THROAT Last adm inistered on 05/19/18at 01:40; Admin Dose 2 SPRAY; Start 05/19/18 at 01:00 Calcium Gluconate (Ca Gluc) 1 gm ONCE PRN IV FOR MAGNESIUM TOXICITY; Start 05/19/18 at 04:00 Dextrose/Sodium Chloride 1,000 ml @ 50 mls/hr Q20H IV Last administered on 05/20/18at 04:18; Admin Dose 100 MLS/HR; Start 05/19/18 at 09:00 Simethicone (Mylicon) 80 mg Q6 PO Last administered on 05/20/18at 12:21; Admin Dose 80 MG; Start 05/19/18 at 18:00 Docusate Sodium (Colace) 200 mg BID PO ; Start 05/20/18 at 10:30 JACKIE DO NP May 20, 2018 12:33
--- NOTE | 2018-05-20 12:46 | PN ---
Date/Time of Note Date/Time of Note DATE: 05/20/18 TIME: 12:41 Assessment/Plan Lines/Catheters IV Catheter Type (from Nrs): Peripheral IV Sher in Place (from Nrs): No Assessment/Plan Chief Complaint/Hosp Course 1. Acute perforated appendicitis with peritonitis and abscesses; Ventral hernia: status post laparoscopic appendectomy and washout, partial sacrectomy, partial omentectomy and ventral hernia repair 05/16/18. Probable paralytic ileus > improving -IS -encourage ambulation -ice pack to abdominal wall -slow diet advancement as tolerated -continue drain care -ID/iv abx -pain control 2. Gravid 28 weeks: -Per laborist/perinatology 3.Leukocytosis: Likely / #1: improving -As above -Monitor 4. Hypochromic anemia -Monitor and transfuse as needed Thank you. Patient seen and examined in collaboration with Dr. Juan A Das. Subjective 24 Hr Interval Summary Feels better. Tolerating liquids. + flatus, no bm as of yet. No fevers, chills, sob, congested cough, cp, palpitations, strong, dizziness, n/v/d/dysuria. Exam/Review of Systems Vital Signs Vitals Vital Signs Date Temp Pulse Resp B/P (MAP) Pulse Ox O2 O2 Flow FiO2 Time Delivery Rate 05/18/18 98.0 19:54 05/18/18 79 18 129/79 92 Nasal 05:49 (96) Cannula 05/17/18 2.0 22:54 Intake and Output 05/19/18 05/19/18 05/20/18 1515:00 23:00 07:00 IntakeIntake Total 850 ml 1525 ml 1200 ml OutputOutput Total 1300 ml 1380 ml 920 ml BalanceBalance -450 ml 145 ml 280 ml Exam Free Text/Dictation Constitutional: alert, oriented, anxious/uncomfortable Psych: anxiety (Minimal) Head: normocephalic, atraumatic Eyes: nl conjunctiva, EOMI, nl lids, nl sclera ENMT: nl external ears & nose, nl lips & teeth, nl nasal mucosa & septum, muc nayeli pink and moist Neck: supple, non-tender; No jvd Respiratory: normal air movement; No congested cough Cardiovascular: regular rate and rhythm, nl pulses; No edema Gastrointestinal: soft, decreased tender, Gravid; jared drain serosang; No rebound or guarding Musculoskeletal: nl extremities to inspection, nl gait and stance Extremities: normal pulses Neurological: nl mental status, nl speech, nl strength Skin: No rash or lesions Lymph: nl lymph nodes Results Result Diagram: 05/20/18 0907 05/19/18 0450 JENA MON NP May 20, 2018 12:45
[2018-05-20 15:00] VITALS: BP 104/64; PULSE 71; RESP 18
[2018-05-20 19:42] VITALS: BP 106/69; PULSE 77; RESP 18
--- NOTE | 2018-05-20 22:37 | QN ---
Documentation Comment 38 years old 6 para 1041 with single intrauterine at 29 weeks and 2 days status post appendectomy. She is currently doing well. She has no complaint. heart rate is category 1. She has no uterine contraction. She has received magnesium sulfate and 2 doses of betamethasone. Currently steroid benefited. She was seen by Dr. Das, who has agreed to transfer to patient to [facility] unit. She is afebrile vital sign is stable She has been tolerated clear diet NST every 8 hours Follow-up by laborist CHANDA POSADAS May 20, 2018 22:37
[2018-05-21] MEDS: ACETAMINOPHEN 325 MG TAB PO PRN ×5 (00:01→22:17)
[2018-05-21 01:57] VITALS: BP 98/64; PULSE 70; RESP 18
[2018-05-21] MEDS: PIPER-TAZO 3.375 GM IV (PMX) 100 ML IVPB SCH ×3 (05:45→22:17)
[2018-05-21 08:16] VITALS: BP 103/65; PULSE 72; RESP 16
[2018-05-21] MEDS: PRENATAL VITAMIN PO SCH (09:30)
[2018-05-21] MEDS: DOCUSATE SODIUM 100 MG CAP PO SCH ×2 (09:30→22:16)
[2018-05-21] MEDS: FERROUS SULFATE (EC) 325 MG TAB PO SCH (09:31)
[2018-05-21] MEDS: ASPIRIN 81 MG TAB PO SCH (09:31)
--- NOTE | 2018-05-21 12:42 | PN ---
Date/Time of Note Date/Time of Note DATE: 05/21/18 TIME: 12:38 Assessment/Plan Lines/Catheters IV Catheter Type (from Nrs): Peripheral IV Sher in Place (from Nrs): No Assessment/Plan Chief Complaint/Hosp Course 1. Acute perforated appendicitis with peritonitis and abscesses; Ventral hernia: status post laparoscopic appendectomy and washout, partial sacrectomy, partial omentectomy and ventral hernia repair 05/16/18. Probable paralytic ileus > resolved (+bowel function) -IS -encourage ambulation -ice pack to abdominal wall -diet advancement as tolerated -continue drain care -ID/iv abx -pain control -MRI to evaluate for potential source of increase wbc 2. Gravid 28 weeks: -Per laborist/perinatology 3.Leukocytosis: Likely 2/ #1: uptick today -As above -Monitor 4. Hypochromic anemia -Monitor and transfuse as needed Thank you. Patient seen and examined in collaboration with Dr. Juan A Das. Subjective 24 Hr Interval Summary Feels much better. Back pain overnight but resolved currently. + bowel function. tolerating diet. No fevers, chills, sob, congested cough, cp, palpitations, strong, dizziness, n/v/d/dysuria. WBC uptick today. Exam/Review of Systems Vital Signs Vitals Vital Signs Date Temp Pulse Resp B/P (MAP) Pulse Ox O2 O2 Flow FiO2 Time Delivery Rate 05/21/18 99.4 72 16 103/65 96 08:16 (78) 05/21/18 Room Air 01:57 05/17/18 2.0 22:54 Intake and Output 05/20/18 05/20/18 05/21/18 1515:00 23:00 07:00 IntakeIntake Total 480 ml 1440 ml 840 ml OutputOutput Total 340 ml 30 ml 30 ml BalanceBalance 140 ml 1410 ml 810 ml Exam Free Text/Dictation Constitutional: alert, oriented Psych: nl mood Head: normocephalic, atraumatic Eyes: nl conjunctiva, EOMI, nl lids, nl sclera ENMT: nl external ears & nose, nl lips & teeth, nl nasal mucosa & septum, mucosa pink and moist Neck: supple, non-tender; No jvd Respiratory: normal air movement; No congested cough Cardiovascular: regular rate and rhythm, nl pulses; No edema Gastrointestinal: soft, decreased tender, Gravid; jared drain serosang; No rebound or guarding Musculoskeletal: nl extremities to inspection, nl gait and stance Extremities: normal pulses Neurological: nl mental status, nl speech, nl strength Skin: No rash or lesions Lymph: nl lymph nodes Results Result Diagram: 05/21/18 0523 05/21/18 0523 JENA MON NP May 21, 2018 12:42
--- NOTE | 2018-05-21 13:35 | PN ---
Date/Time of Note Date/Time of Note DATE: 05/21/18 TIME: 13:35 Assessment/Plan VTE Prophylaxis Risk score (from Nsg)>0 risk: 4 SCD applied (from Nsg): Yes Pharmacological prophylaxis: other Lines/Catheters IV Catheter Type (from Nrsg): Peripheral IV Urinary Cath still in place: No Assessment/Plan Hospital Course S: mild abd distention objective : Gen: Thin, well developed woman lying in bed in no acute distress. Eyes: PERRL, no icterus HEENT: Moist mucous membranes, clear oropharynx Neck: Supple, no lymphadenopathy, no JVD Card: Regular rate and rhythm, no murmurs Pulm: diminshed Abd: Gravid and distended. Lap incisions appear clean except suprapubic one which has a dressing over it. Nontender to mild palpation, soft. BENJA drain with serosanguinous nonpurulent output. Ext: Trace LE nonpitting edema. Good peripheral pulses. Skin: warm, dry, well perfused. assessment and plan: 38 yo woman no major PMH presents at 28 weeks with perforated appendicitis, s/p surgery. #Perforated appendicitis with peritonitis / ventral hernia s/p lap appy and hernia repair s/ppost op ileus: #Hypoxia resolved #DVT ppx - This patient is at high risk of DVT due to recent abdominal surgery and - Continue ambulation at least twice daily. As long as she is mobile no need to start anticoag. - Okay to continue aspirin per OB which may reduce risk of spontaneous . DISPO: Surgery ordered repeat MRI 2/2 WBC trending up. f/u findings Thank you for the consult. We will continue to follow. Result Diagram: 05/21/18 0523 05/21/18 0523 Results 24hrs Laboratory Tests Test 05/21/18 05:23 White Blood Count 14.2 H Red Blood Count 2.89 L Hemoglobin 8.1 L Hematocrit 25.5 L Mean Corpuscular Volume 88.2 Mean Corpuscular Hemoglobin 28.0 L Mean Corpuscular Hemoglobin Concent 31.8 L Red Cell Distribution Width 13.9 Platelet Count 374 Mean Platelet Volume 9.2 Immature Granulocytes % 4.400 H Neutrophils % 79.6 H Lymphocytes % 6.0 L Monocytes % 7.1 Eosinophils % 2.7 Basophils % 0.2 Nucleated Red Blood Cells % 0.0 Immature Granulocytes # 0.620 H Neutrophils # 11.3 H Lymphocytes # 0.9 Monocytes # 1.0 H Eosinophils # 0.4 Basophils # 0.0 Nucleated Red Blood Cells # 0.0 Sodium Level 138 Potassium Level 3.2 L Chloride Level 109 Carbon Dioxide Level 24 Anion Gap 5 Blood Urea Nitrogen 6 L Creatinine 0.46 Est Glomerular Filtrat Rate mL/min > 60 Glucose Level 75 Calcium Level 7.8 L Exam/Review of Systems Exam Vitals Vital Signs Date Temp Pulse Resp B/P (MAP) Pulse Ox O2 O2 Flow FiO2 Time Delivery Rate 05/21/18 99.4 72 16 103/65 96 08:16 (78) 05/21/18 Room Air 01:57 05/17/18 2.0 22:54 Intake and Output 05/20/18 05/20/18 05/21/18 1515:00 23:00 07:00 IntakeIntake Total 480 ml 1440 ml 840 ml OutputOutput Total 340 ml 30 ml 30 ml BalanceBalance 140 ml 1410 ml 810 ml Results Results 24hrs Laboratory Tests Test 05/21/18 05:23 White Blood Count 14.2 H Red Blood Count 2.89 L Hemoglobin 8.1 L Hematocrit 25.5 L Mean Corpuscular Volume 88.2 Mean Corpuscular Hemoglobin 28.0 L Mean Corpuscular Hemoglobin Concent 31.8 L Red Cell Distribution Width 13.9 Platelet Count 374 Mean Platelet Volume 9.2 Immature Granulocytes % 4.400 H Neutrophils % 79.6 H Lymphocytes % 6.0 L Monocytes % 7.1 Eosinophils % 2.7 Basophils % 0.2 Nucleated Red Blood Cells % 0.0 Immature Granulocytes # 0.620 H Neutrophils # 11.3 H Lymphocytes # 0.9 Monocytes # 1.0 H Eosinophils # 0.4 Basophils # 0.0 Nucleated Red Blood Cells # 0.0 Sodium Level 138 Potassium Level 3.2 L Chloride Level 109 Carbon Dioxide Level 24 Anion Gap 5 Blood Urea Nitrogen 6 L Creatinine 0.46 Est Glomerular Filtrat Rate mL/min > 60 Glucose Level 75 Calcium Level 7.8 L Medications Medication Current Medications Prenat Multivit/ [place]/Iron/Folic Ac () 1 tab DAILY PO Last administered on 05/21/18at 09:30; Admin Dose 1 TAB; Start 05/15/18 at 09:00 Ferrous Sulfate (Ferrous Sulfate (Ec)) 325 mg DAILY PO Last administered on 05/21/18 09:31; Admin Dose 325 MG; Start 05/15/18 at 09:00 Acetaminophen (Tylenol Tab) 650 mg Q4H PRN PO .PAIN OR TEMP Last administered on 05/21/18at 09:58; Admin Dose 650 MG; Start 05/15/18 at 03:00 Al Hydrox/Mg Hydrox/Simethicone (Mag-Al Plus) 30 ml Q6H PRN PO .GI UPSET Last administered on 05/18/18at 07:53; Admin Dose 30 ML; Start 05/15/18 at 03:00 Ondansetron HCl (Zofran Inj) 4 mg Q6H PRN IV NAUSEA/VOMITING; Start 05/15/18 at 03:00 Aspirin (Aspirin) 81 mg DAILY PO Last administered on 05/21/18at 09:31; Admin Dose 81 MG; Start 05/15/18 at 12:30 Piperacillin Sod/ Tazobactam Sod 100 ml @ 200 mls/hr Q8 IVPB Last administered on 05/21/18at 05:45; Admin Dose 200 MLS/HR; Start 05/17/18 at 06:00 Hydromorphone HCl (Dilaudid) 1 mg Q2H PRN IV SEVERE PAIN LEVEL 4-6; Start 05/18/18 at 14:01 Tramadol HCl (Ultram) 100 mg Q6H PRN PO MODERATE PAIN LEVEL 1-3; Start 05/18/18 at 14:30 Hydromorphone HCl (Dilaudid) 2 mg Q2H PRN IV SEVERE PAIN LEVEL 7-10; Start 05/18/18 at 14:00 Dextrose/Lactated Ringer's 1,000 ml @ 125 mls/hr Q8H PRN IV PER MD; Start 05/19/18 at 07:00 Lactated Ringer's 1,000 ml @ 125 mls/hr Q8H PRN IV per MD; Start 05/19/18 at 07:00 Phenol (Chloraseptic Throat [place]) 2 spray Q2H PRN MT SORE THROAT Last administered on 05/19/18at 01:40; Admin Dose 2 SPRAY; Start 05/19/18 at 01:00 Calcium Gluconate (Ca Gluc) 1 gm ONCE PRN IV FOR MAGNESIUM TOXICITY; Start 05/19/18 at 04:00 Dextrose/Sodium Chloride 1,000 ml @ 50 mls/hr Q20H IV Last administered on 05/20/18 20:10; Admin Dose 50 MLS/HR; Start 05/19/18 at 09:00 Simethicone (Mylicon) 80 mg Q6 PO Last administered on 05/21/18 13:20; Admin Dose 80 MG; Start 05/19/18 at 18:00 Docusate Sodium (Colace) 200 mg BID PO Last administered on 05/21/18at 09:30; Admin Dose 200 MG; Start 05/20/18 at 10:30 CLIVE ZARATE May 21, 2018 13:35
[2018-05-21 14:50] VITALS: BP 101/58; PULSE 82; RESP 18
[2018-05-21] MEDS: DEXTROSE 5%-0.45% NACL 1,000 ML IV SCH ×2 (15:55→19:00)
--- NOTE | 2018-05-21 17:21 | CONS ---
Assessment/Plan Assessment/Plan Hospital Course (Demo Recall) Patient is awake very emotional, upset about MRI and wants to go home. Family at bedside. WBC today went up to 14.2 with neutrophils 79.6. BUN 6 creatinine 0.46. Antimicrobials: Zosyn Physical examination: This is a well-developed well-nourished ill-appearing middle-aged woman who is awake in no distress. Head atraumatic normocephalic sclera nonicteric. Neck is supple. Chest rise symmetrical breath sounds diminished bases. Heart: S1-S2. Abdomen soft, + BT extremities without cyan osis Assessment: 1. Systemic inflammatory response syndrome 2. Acute perforated appendicitis, status post laparoscopic appendectomy with washout and partial omentectomy 05/16/18 3. 28 weeks 4. History of multiple miscarriages Plan: Clinically unchanged and overall stable, continue antibiotics, await for abdominal MRI, follow surgical recommendations Discussed with patient and family at bedside Consultation Date/Type/Reason Admit Date/Time May 15, 2018 at 03:00 Initial Consult Date 05/17/18 Type of Consult id Requesting Provider: JENA MON NP Date/Time of Note DATE: 05/21/18 TIME: 17:20 Exam/Review of Systems Exam Vitals Vital Signs Date Temp Pulse Resp B/P (MAP) Pulse Ox O2 O2 Flow FiO2 Time Delivery Rate 05/21/18 99.4 72 16 103/65 96 08:16 (78) 05/21/18 Room Air 01:57 05/17/18 2.0 22:54 Intake and Output 05/20/18 05/20/18 05/21/18 1515:00 23:00 07:00 IntakeIntake Total 480 ml 1440 ml 840 ml OutputOutput Total 340 ml 30 ml 30 ml BalanceBalance 140 ml 1410 ml 810 ml Results Result Diagram: 05/21/18 0523 05/21/18 0523 Results 24hrs Laboratory Tests Test 05/21/18 05:23 White Blood Count 14.2 H Red Blood Count 2.89 L Hemoglobin 8.1 L Hematocrit 25.5 L Mean Corpuscular Volume 88.2 Mean Corpuscular Hemoglobin 28.0 L Mean Corpuscular Hemoglobin Concent 31.8 L Red Cell Distribution Width 13.9 Platelet Count 374 Mean Platelet Volume 9.2 Immature Granulocytes % 4.400 H Neutrophils % 79.6 H Lymphocytes % 6.0 L Monocytes % 7.1 Eosinophils % 2.7 Basophils % 0.2 Nucleated Red Blood Cells % 0.0 Immature Granulocytes # 0.620 H Neutrophils # 11.3 H Lymphocytes # 0.9 Monocytes # 1.0 H Eosinophils # 0.4 Basophils # 0.0 Nucleated Red Blood Cells # 0.0 Sodium Level 138 Potassium Level 3.2 L Chloride Level 109 Carbon Dioxide Level 24 Anion Gap 5 Blood Urea Nitrogen 6 L Creatinine 0.46 Est Glomerular Filtrat Rate mL/min > 60 Glucose Level 75 Calcium Level 7.8 L Medications Medication Current Medications Prenat Multivit/ Sales Applications Engineer/Iron/Folic Ac () 1 tab DAILY PO Last administered on 05/21/18 09:30; Admin Dose 1 TAB; Start 05/15/18 at 09:00 Ferrous Sulfate (Ferrous Sulfate (Ec)) 325 mg DAILY PO Last administered on 05/21/18 09:31; Admin Dose 325 MG; Start 05/15/18 at 09:00 Acetaminophen (Tylenol Tab) 650 mg Q4H PRN PO .PAIN OR TEMP Last administered on 05/21/18 09:58; Admin Dose 650 MG; Start 05/15/18 at 03:00 Al Hydrox/Mg Hydrox/Simethicone (Mag-Al Plus) 30 ml Q6H PRN PO .GI UPSET Last administered on 05/18/18 07:53; Admin Dose 30 ML; Start 05/15/18 at 03:00 Ondansetron HCl (Zofran Inj) 4 mg Q6H PRN IV NAUSEA/VOMITING; Start 05/15/18 at 03:00 Aspirin (Aspirin) 81 mg DAILY PO Last administered on 05/21/18 09:31; Admin Dose 81 MG; Start 05/15/18 at 12:30 Piperacillin Sod/ Tazobactam Sod 100 ml @ 200 mls/hr Q8 IVPB Last administered on 05/21/18 13:49; Admin Dose 200 MLS/HR; Start 05/17/18 at 06:00 Hydromorphone HCl (Dilaudid) 1 mg Q2H PRN IV SEVERE PAIN LEVEL 4-6; Start 05/18/18 at 14:01 Tramadol HCl (Ultram) 100 mg Q6H PRN PO MODERATE PAIN LEVEL 1-3; Start 05/18/18 at 14:30 Hydromorphone HCl (Dilaudid) 2 mg Q2H PRN IV SEVERE PAIN LEVEL 7-10; Start 05/18/18 at 14:00 Dextrose/Lactated Ringer's 1,000 ml @ 125 mls/hr Q8H PRN IV PER MD; Start 05/19/18 at 07:00 Lactated Ringer's 1,000 ml @ 125 mls/hr Q8H PRN IV per MD; Start 05/19/18 at 07:00 Phenol (Chloraseptic Throat Diagonal) 2 spray Q2H PRN MT SORE THROAT Last administered on 05/19/18at 01:40; Admin Dose 2 SPRAY; Start 05/19/18 at 01:00 Calcium Gluconate (Ca Gluc) 1 gm ONCE PRN IV FOR MAGNESIUM TOXICITY; Start 05/19/18 at 04:00 Dextrose/Sodium Chloride 1,000 ml @ 50 mls/hr Q20H IV Last administered on 05/20/18at 20:10; Admin Dose 50 MLS/HR; Start 05/19/18 at 09:00 Simethicone (Mylicon) 80 mg Q6 PO Last administered on 05/21/18at 13:20; Admin Dose 80 MG; Start 05/19/18 at 18:00 Docusate Sodium (Colace) 200 mg BID PO Last administered on 05/21/18at 09:30; Admin Dose 200 MG; Start 05/20/18 at 10:30 JACKIE DO NP May 21, 2018 17:21
--- NOTE | 2018-05-21 17:51 | PN ---
Date/Time of Note Date/Time of Note DATE: 05/21/18 TIME: 17:48 OB Subjective Subjective Subjective Reports moderate pain in the incison, Denies any fever or chills. Tolerated clear liquid diet. Passed flatus. Had bowel movement. Urinated. Denies any leaking of fluid, vaginal bleeding, decreased movements. Denies any contractions. OB Objective Objective Objective GA: Alert and oriented x4 does not appear to be in any acute distress Abdomen: Soft, appropriate tenderness in the lap scopic incision. There is a drain through the lower abdominal lap scopic incision draining serous fluid Appropriate tenderness around the incision. Uterus nontender and palpation. Fundal height consistent with gestational date Extremities: No calf tenderness, no click no edema no cord palpable Lungs: Clear to auscultation bilaterally CV: RRR VS - Last 72 Hours, by Label Date Temp Pulse Resp B/P (MAP) Pulse Ox O2 O2 Flow FiO2 Time Delivery Rate 05/21/18 99.4 72 16 103/65 96 08:16 (78) 05/21/18 98.1 70 18 98/64 (75) 96 Room Air 01:57 05/20/18 98.6 77 18 106/69 98 19:42 (81) 05/20/18 98.4 71 18 104/64 97 15:00 (77) 05/18/18 98.0 19:54 Laboratory Tests Test 05/21/18 05:23 White Blood Count 14.2 H Red Blood Count 2.89 L Hemoglobin 8.1 L Hematocrit 25.5 L Mean Corpuscular Volume 88.2 Mean Corpuscular Hemoglobin 28.0 L Mean Corpuscular Hemoglobin Concent 31.8 L Red Cell Distribution Width 13.9 Platelet Count 374 Mean Platelet Volume 9.2 Immature Granulocytes % 4.400 H Neutrophils % 79.6 H Lymphocytes % 6.0 L Monocytes % 7.1 Eosinophils % 2.7 Basophils % 0.2 Nucleated Red Blood Cells % 0.0 Immature Granulocytes # 0.620 H Neutrophils # 11.3 H Lymphocytes # 0.9 Monocytes # 1.0 H Eosinophils # 0.4 Basophils # 0.0 Nucleated Red Blood Cells # 0.0 Sodium Level 138 Potassium Level 3.2 L Chloride Level 109 Carbon Dioxide Level 24 Anion Gap 5 Blood Urea Nitrogen 6 L Creatinine 0.46 Est Glomerular Filtrat Rate mL/min > 60 Glucose Level 75 Calcium Level 7.8 L OB Assessment/Plan Other Assessment: Is post laparoscopic appendectomy by general surgery Postoperative day #1 Elevated white blood cell patient being seen by general surgeon Currently doing well No evidence of septicemia No evidence of labor or PPROM Follow-up by general surgery Recommended NST every shift DVT prophylaxis while in bed. Recommended to have SCD in place Encouraged to use incentive spirometer Pain control . DO HAWKINS MD May 21, 2018 17:50
[2018-05-21 19:31] VITALS: BP 109/66; PULSE 79; RESP 16
[2018-05-22 01:21] VITALS: BP 102/55; PULSE 78; RESP 16
[2018-05-22] MEDS: ACETAMINOPHEN 325 MG TAB PO PRN ×2 (05:04→10:13)
[2018-05-22] MEDS: PIPER-TAZO 3.375 GM IV (PMX) 100 ML IVPB SCH (06:06)
[2018-05-22 07:46] VITALS: BP 100/66; PULSE 77; RESP 18
[2018-05-22] MEDS: PRENATAL VITAMIN PO SCH (10:13)
[2018-05-22] MEDS: FERROUS SULFATE (EC) 325 MG TAB PO SCH (10:13)
[2018-05-22] MEDS: DOCUSATE SODIUM 100 MG CAP PO SCH (10:14)
[2018-05-22] MEDS: ASPIRIN 81 MG TAB PO SCH (10:14)
[2018-05-22] MEDS ORDERED: FER325 PO (11:04)
[2018-05-22] MEDS ORDERED: AMOX1TAB10 PO (11:04)
[2018-05-22] MEDS ORDERED: DOCU-144 PO (11:04)
[2018-05-22] MEDS ORDERED: LACT1CAP57 PO (11:04)
[2018-05-22] MEDS ORDERED: PREN1TAB71 PO (11:04)
--- NOTE | 2018-05-22 11:08 | PDOCDIS ---
Discharge Instructions DIAGNOSIS Discharge Diagnosis perforated appendicitis with peritonitis and post op paralytic ileus IUP at estimated 29wks and 5 days . CONDITION [id number] Patient Condition: [id number] Stable HOME CARE INSTRUCTIONS: [id number] Special Diet: [id number] lots of fluids, soft diet high in fiber ACTIVITY: [id number] Activity Restrictions: [id number] Slowly Increase Activity Rest between Activity Avoid heavy lifting Avoid Heavy Housework FOLLOW UP/APPOINTMENTS Follow-up Plan Call Dr Das's office for followup and to remove the drain Please call the surgeon's office for follow-up and drain removal Name, Degree : Juan A Das MD Specialty : General Surgery Office Address : [address] [place] [id number] Office Office Your nurse will instruct you on care of the drain before you leave, if you have any concerns or the drain accidentally comes out, please call Dr. Das's office. Review your medication list with your nurse before leaving and if you need new prescriptions please let your nurse know. Stay compliant with your medications and report any side effects to your PCP or pharmacist. Return to the ER if you have any concerns and cannot reach your doctors or call your insurance company, they usually have a nurse that can help you. CLIVE ZARATE May 22, 2018 11:08
--- NOTE | 2018-05-22 11:33 | DS ---
DATE OF ADMISSION: 05/15/2018 DATE OF DISCHARGE: 05/22/2018 FINAL DIAGNOSES: A 38-year-old female with no major past medical history who presented at 28 weeks d iagnosed with perforated appendicitis. 1. Perforated appendicitis with peritonitis and abscesses and ventral hernia. She is status post la paroscopic appendectomy and washout with partial cecectomy and partial omentectomy and ventral hernia repair 05/16/2018. 2. Mild postoperative paralytic ileus: Resolved. 3. Gravid at 28 weeks baby monitored daily and stable. 4. Leukocytosis postoperatively. 5. Hypochromic anemia. CONSULTANTS ON THE CASE: 1. Obstetrics Favian Gleason, Dr. Barry Arriola, Dr. Sascha Bunn and Dr. Stephanie ortiz. 2. General surgery, Dr. Juan A Das. 3. Infectious disease, Dr. Davy Correa. INTERVENTIONS: The patient underwent multiple obstetric ultrasounds and then an abdominal MRI that c onfirmed presence of enlarged appendix with circumferential wall thickening and moderate right-sided hydronephrosis and then she underwent surgical repair as summarized above on 05/16/2018. Please note that she had a cecectomy and this was done 05/16/2018. Then, she had a repeat MRI done 05/22/2018 b ecause she was having a mild bump in her white blood cell count. DISPOSITION: To home. ACTIVITIES: As tolerated. FOLLOWUP: She is to follow up with the surgeon, Dr. Das in 1 week and she is to follow up with h er routine OB doctor in next couple of days as well as her primary doctor if she has one to ensure co ntinued resolution of symptoms. DIET: The patient is recommended to maintain a soft, fluid heavy as well as fiber heavy diet. DISCHARGE MEDICATIONS: For a complete list of her discharge medication, please review the patient's chart. DISCHARGE CONDITION: Stable. Time spent on discharge coordination has been about 40 minutes. Dictated By: CLIVE AZRATE MD BA/NTS Conf#: [id number] DID#: [id number] CC: FAVIAN ROMERO MD;*EndCC*
--- NOTE | 2018-05-22 11:35 | PN ---
Date/Time of Note Date/Time of Note DATE: 05/22/18 TIME: 11:22 Assessment/Plan Lines/Catheters IV Catheter Type (from Nrs): Peripheral IV Sher in Place (from Nrs): No Assessment/Plan Chief Complaint/Hosp Course 1. Acute perforated appendicitis with peritonitis and abscesses; Ventral hernia: status post laparoscopic appendectomy and washout, partial sacrectomy, partial omentectomy and ventral hernia repair 05/16/18. Probable paralytic ileus > resolved (+bowel function); MRI noted without fluid collection -IS -encourage ambulation -ice pack to abdominal wall -diet advancement as tolerated -continue drain care -ID/iv abx -pain control as needed -Hoff culture -Patient very eager to be discharged home. Ok for discharge home with close monitoring, drain care, oral antibiotics and follow-up in office in 1 week. Given instructions on drain care and follow up. 2. Gravid 28 weeks: -Per laborist/perinatology 3.Leukocytosis: Likely / #1: -As above -Monitor 4. Hypochromic anemia -Monitor and transfuse as needed Thank you. Patient seen and examined in collaboration with Dr. Juan A Das. Subjective 24 Hr Interval Summary Feels well. MRI noted. No fevers, chills, sob, congested cough, cp, palpitations, strong, dizziness, nausea, vomiting, diarrhea, dysuria. Exam/Review of Systems Vital Signs Vitals Vital Signs Date Temp Pulse Resp B/P (MAP) Pulse Ox O2 O2 Flow FiO2 Time Delivery Rate 05/22/18 98.2 77 18 100/66 97 07:46 (77) 05/21/18 Room Air 01:57 Intake and Output 05/21/18 05/21/18 05/22/18 1515:00 23:00 07:00 IntakeIntake Total 580 ml 500 ml 940 ml OutputOutput Total 50 ml BalanceBalance 580 ml 450 ml 940 ml Exam Free Text/Dictation Constitutional: alert, oriented Psych: nl mood Head: normocephalic, atraumatic Eyes: nl conjunctiva, EOMI, nl lids, nl sclera ENMT: nl external ears & nose, nl lips & teeth, nl nasal mucosa & septum, mucosa pink and moist Neck: supple, non-tender; No jvd Respiratory: normal air movement; No congested cough Cardiovascular: regular rate and rhythm, nl pulses; No edema Gastrointestinal: soft, non-tender, Gravid; jared drain serosang; No rebound or guarding Musculoskeletal: nl extremities to inspection, nl gait and stance Extremities: normal pulses Neurological: nl mental status, nl speech, nl strength Skin: No rash or lesions Lymph: nl lymph nodes Results Result Diagram: 05/22/18 0501 05/22/18 0501 JENA MON NP May 22, 2018 11:35
--- NOTE | 2018-05-22 11:51 | CONS ---
Assessment/Plan Assessment/Plan Hospital Course (Demo Recall) All noted, nad, no fevers Antimicrobials: Zosyn Physical examination: This is a well-developed well-nourished ill-appearing middle-aged woman who is awake in no distress. Head atraumatic normocephalic sclera nonicteric. Neck is supple. Chest rise symmetrical breath sounds diminished bases. Heart: S1-S2. Abdomen soft, + BT extremities without cyanosis Assessment: 1. Systemic inflammatory response syndrome 2. Acute perforated appendicitis, status post laparoscopic appendectomy with washout and partial omentectomy 05/16/18 3. 28 weeks 4. History of multiple miscarriages Plan: Stable, MRI noted, cleared by surgery, ok dc on oral Augmentin for 10 more days, pt will f/u with dr Das in the office, will see her prn outpatient Discussed with Senia IYER Consultation Date/Type/Reason Admit Date/Time May 15, 2018 at 03:00 Initial Consult Date 05/17/18 Type of Consult id Requesting Provider: JENA MON NP Date/Time of Note DATE: 05/22/18 TIME: 11:46 Exam/Review of Systems Exam Vitals Vital Signs Date Temp Pulse Resp B/P (MAP) Pulse Ox O2 O2 Flow FiO2 Time Delivery Rate 05/22/18 98.2 77 18 100/66 97 07:46 (77) 05/21/18 Room Air 01:57 Intake and Output 05/21/18 05/21/18 05/22/18 1515:00 23:00 07:00 IntakeIntake Total 580 ml 500 ml 940 ml OutputOutput Total 50 ml 15 ml BalanceBalance 580 ml 450 ml 925 ml Results Result Diagram: 05/22/18 0501 05/22/18 0501 Results 24hrs Laboratory Tests Test 05/22/18 05:01 White Blood Count 14.8 H Red Blood Count 2.93 L Hemoglobin 8.2 L Hematocrit 25.6 L Mean Corpuscular Volume 87.4 Mean Corpuscular Hemoglobin 28.0 L Mean Corpuscular Hemoglobin Concent 32.0 Red Cell Distribution Width 14.0 Platelet Count 427 H Mean Platelet Volume 9.0 Immature Granulocytes % 5.100 H Neutrophils % Segmented Neutrophils % (Manual) 76 Band Neutrophils % (Manual) 13 H Lymphocytes % Lymphocytes % (Manual) 3 L Monocytes % Monocytes % (Manual) 3 Eosinophils % Eosinophils % (Manual) 3 Basophils % Metamyelocytes % (manual) 1 H Myelocytes % (Manual) 1 H Nucleated Red Blood Cells % 0.0 Immature Granulocytes # 0.760 H Neutrophils # Neutrophils # (Manual) 11.5 H Band Neutrophils # 1.9 H Lymphocytes (Manual) 0.4 L Lymphocytes # Monocytes # Monocytes # (Manual) 0.4 Eosinophils # Basophils # Metamyelocytes # 0.1 H Myelocytes # 0.1 H Nucleated Red Blood Cells # Toxic Granulation 1+ Platelet Estimate NORMAL Polychromasia 1+ Poikilocytosis 1+ Anisocytosis 1+ Microcytosis 1+ Sodium Level 137 Potassium Level 3.3 L Chloride Level 107 Carbon Dioxide Level 23 Anion Gap 7 Blood Urea Nitrogen 6 L Creatinine 0.46 Est Glomerular Filtrat Rate mL/min > 60 Glucose Level 69 L Calcium Level 8.1 L Medications Medication Current Medications Prenat Multivit/ Over[employer] Hemmer/Iron/Folic Ac () 1 tab DAILY PO Last administered on 05/22/18 10:13; Admin Dose 1 TAB; Start 05/15/18 at 09:00 Ferrous Sulfate (Ferrous Sulfate (Ec)) 325 mg DAILY PO Last administered on 05/22/18 10:13; Admin Dose 325 MG; Start 05/15/18 at 09:00 Acetaminophen (Tylenol Tab) 650 mg Q4H PRN PO .PAIN OR TEMP Last administered on 05/22/18 10:13; Admin Dose 650 MG; Start 05/15/18 at 03:00 Al Hydrox/Mg Hydrox/Simethicone (Mag-Al Plus) 30 ml Q6H PRN PO .GI UPSET Last administered on 05/18/18 07:53; Admin Dose 30 ML; Start 05/15/18 at 03:00 Ondansetron HCl (Zofran Inj) 4 mg Q6H PRN IV NAUSEA/VOMITING; Start 05/15/18 at 03:00 Aspirin (Aspirin) 81 mg DAILY PO Last administered on 05/22/18 10:14; Admin Dose 81 MG; Start 05/15/18 at 12:30 Piperacillin Sod/ Tazobactam Sod 100 ml @ 200 mls/hr Q8 IVPB Last administered on 05/22/18 06:06; Admin Dose 200 MLS/HR; Start 05/17/18 at 06:00 Hydromorphone HCl (Dilaudid) 1 mg Q2H PRN IV SEVERE PAIN LEVEL 4-6; Start 05/18/18 at 14:01 Tramadol HCl (Ultram) 100 mg Q6H PRN PO MODERATE PAIN LEVEL 1-3; Start 05/18/18 at 14:30 Hydromorphone HCl (Dilaudid) 2 mg Q2H PRN IV SEVERE PAIN LEVEL 7-10; Start 05/18/18 at 14:00 Dextrose/Lactated Ringer's 1,000 ml @ 125 mls/hr Q8H PRN IV PER MD; Start 05/19/18 at 07:00 Lactated Ringer's 1,000 ml @ 125 mls/hr Q8H PRN IV per MD; Start 05/19/18 at 07:00 Phenol (Chloraseptic Throat [place]) 2 spray Q2H PRN MT SORE THROAT Last admi nistered on 05/19/18at 01:40; Admin Dose 2 SPRAY; Start 05/19/18 at 01:00 Calcium Gluconate (Ca Gluc) 1 gm ONCE PRN IV FOR MAGNESIUM TOXICITY; Start 05/19/18 at 04:00 Dextrose/Sodium Chloride 1,000 ml @ 50 mls/hr Q20H IV Last administered on 05/21/18at 19:00; Admin Dose 50 MLS/HR; Start 05/19/18 at 09:00 Simethicone (Mylicon) 80 mg Q6 PO Last administered on 05/22/18at 06:05; Admin Dose 80 MG; Start 05/19/18 at 18:00 Docusate Sodium (Colace) 200 mg BID PO Last administered on 05/21/18at 22:16; A dmin Dose 200 MG; Start 05/20/18 at 10:30 JACKIE DO NP May 22, 2018 11:51
[2018-05-22] MEDS: DEXTROSE 5%-0.45% NACL 1,000 ML IV SCH (11:55)
== END 2018-05-22 13:15 | disposition home or self-care (01) | DRG 817 ==
LOC: OBT 22:25 → L-D 22:27 → OBT 05-15 03:00 → L-D 05-15 03:00 → 2NE 05-20 14:55
PROVIDERS: ADMIT Obstetrics & Gynecology; ATTEND Obstetrics & Gynecology
PROC: 0DBH4ZZ Excision of Cecum, Percutaneous Endoscopic Approach (ICD-10-PCS; 2018-05-15)
PROC: 0DBU4ZZ Excision of Omentum, Percutaneous Endoscopic Approach (ICD-10-PCS; 2018-05-16)
PROC: 0WQF4ZZ Repair Abdominal Wall, Percutaneous Endoscopic Approach (ICD-10-PCS; 2018-05-16)
PROC: 0DTJ4ZZ Resection of Appendix, Percutaneous Endoscopic Approach (ICD-10-PCS; principal; 2018-05-16 20:00)
DX: O99.613 Diseases of the digestive system complicating pregnancy, third trimester (principal); K35.33 Acute appendicitis with perforation, localized peritonitis, and gangrene, with abscess; K43.9 Ventral hernia without obstruction or gangrene; K66.0 Peritoneal adhesions (postprocedural) (postinfection); O34.211 Maternal care for low transverse scar from previous cesarean delivery; O34.13 Maternal care for benign tumor of corpus uteri, third trimester; O99.283 Endocrine, nutritional and metabolic diseases complicating pregnancy, third trimester; E87.6 Hypokalemia; O99.89 Other specified diseases and conditions complicating pregnancy, childbirth and the puerperium; R09.02 Hypoxemia; O99.013 Anemia complicating pregnancy, third trimester; K63.89 Other specified diseases of intestine; D50.9 Iron deficiency anemia, unspecified; Z3A.28 28 weeks gestation of pregnancy
CPT/HCPCS: 36415; 71045; 74181; 76815; 76817; 76818; 80048; 80053; 81003; 82150; 83605; 83690; 83735; 84100; 84560; 85025; 86592; 86850; 86900; 86901; 87040; 87070; 87086; 88304; 96361; 96372; 96374; 96375; 96376; G0463; J0131; J0690; J0702; J1100; J1170; J2250; J2270; J2405; J2543; J2795; J3010; J3360; J3475; J7030; J7042; J7120; J7121